=== PATIENT | male | born 1940 | race Caucasian/White ===

== ENCOUNTER 2018-09-09 11:10 | Inpatient (IN) | payer OTHER ==
[2018-09-09 13:52] VITALS: BP 132/72
--- NOTE | 2018-09-09 14:19 | NUR ---
1215: Admitted to room 519-B via gerney from [facility] via EMS transport. Pt quiet, non-Romansh speaking, appears to understand subtle gestures. Head-to-toe assessment completed, no skin issues noted, skin w/d, hygiene poor. VS taken, 132/72 HR 69, RR 16, 97.2, O@SAT 98%. Lung fileds CTA bilat. Admission assessment completed. Dr. Weir here, med orders reviewed, new orders wrote.
--- NOTE | 2018-09-09 17:01 | NUR ---
NEW ORDER PER DR. ALVES, 1:1 SITTER WHILE AWAKE. NOTE: PATIENT IS AWAKE THROUGHOUT THE NIGHT.
[2018-09-09 20:21] VITALS: BP 132/77
--- NOTE | 2018-09-09 20:28 | NUR ---
ASSUMED CARE @ 19:15. 1:1 SITTER. PT ASLEEP IN A CHAIR IN HIS ROOM. TOOK HIMSELF TO BED @ 20:30.
--- NOTE | 2018-09-10 00:02 | NUR ---
AT 22:50 PT AWAKENED. KEPT TRYING TO URINATE ON THE JOSEPH, BEGAN HITTING WHEN STAFF TRIED TO WALK HIM TO THE TOILET. ACCEPTED ZYPREXA AND WATER, THEN SPIT IT ON THE FLOOR. FINALLY ALLOWED SELF TO BE AMBULATED TO THE TOILET, URINATED IN TOILET. HITTING STAFF WHO WERE TRYING TO HELP HIM WALK DUE TO UNSTEADINESS. ORDER FOR THORAZINE IM AND COGENTIN IM OBTAINED. SECURITY CALLED. IM MEDS GIVEN @ 23:55. ALLOWED HIMSELF TO LAY DOWN IN BED @ 00:05. SECURITY LEFT AT THAT TIME. CONTINUE TO PROVIDE 1:1 OBSERVATION.
[2018-09-10 00:11] VITALS: BP 132/77
--- NOTE | 2018-09-10 06:27 | NUR ---
04:25 AWAKE AND OUT OF BED. HITTING STAFF. WANTED TO AMBULATE BUT TRIED TO GO INTO OTHER PATIENTS ROOMS HIT STAFF WHEN THEY TRIED TO GUIDE HIM OUT OF ROOMS, HIT STAFF WHEN THEY PUT GAIT BELT ON PATIENT. NEW ORDER FOR zYPREXA 5MG MELING S.L. PT TOOK PILL AND DID OT SPIT IT OUT. REMAINED AWAKE SITTING UP IN A CHAIR IN HIS ROOM FROM THAT TIME ON. 07:00 MEDS GIVEN @ 06:40 IN ICE CREAM. CONTINUES WITH 1:1 CARE.
[2018-09-10 08:15] VITALS: BP 128/70
--- NOTE | 2018-09-10 12:17 | NUR ---
MATTY spoke wiht ashley Mathew with Dr to. Pt's dght reported that she will be looking for a secure unit closer to her place, as she belives [facility] will provide her with a 30 day notice. Pt will be seeing an oupt urologist, Matty will provide dght with numbers to call and make an appt.
--- NOTE | 2018-09-10 12:40 | NUR ---
PATIENT REMAIN ON 1:1 FOR INAPPROPRIATE BEHAVIOR, PATIENT IS VERY CONFUSED, VOIDS ON THE CORNER OF THE JOSEPH, TAKES CLOTHENS OFF IN ROSS WAY. PATIENT WARDERS INTO PEERS ROOM, HE GETS IRRITABLE WITH REDIRECTION. MEDICATION GIVEN WHOLE THIS MORNING, BUT PATIENT SPIT THEM OUT. THEN HE TOOK MEDS CRUSHED IN PUDDING. DAUGHTER (KENYA) DPOA IN THE HOSPITAL VISITING AT THIS TIME, KENYA SIGNED ALL ADMISSION PAPERWORK, INCLUDING RELEASE OF INFORMATION PAPER. PATIENT IS EATING MEALS, AND DRINKING FLUID WELL. PATIENT IS NOT ABLE TO RESPOND APPROPRIATELY TO ASSESSMENT QUESTION DUE TO COGNITIVE IMPAIRMENT. PATIENT'S DAUGHTER HERE TO INTERPRETE, BUT PATIENT LACK UNDERSTANDING TO THE QUESTIONS. NO AGITATION NOTED AT THIS TIME. INFORMATION ON THORAZINE GIVEN TO KENYA PER HER REQUEST. WILL MONITOR FOR SAFETY.
[2018-09-10] MEDS ORDERED: MIRALAX17 GM PO ×2 (15:55→15:57)
[2018-09-10] MEDS ORDERED: LIDOCAINE PAIN1 EACH TRANSDERM (16:00)
--- NOTE | 2018-09-10 21:34 | H ---
[facility] [place] [address] HISTORY AND PHYSICAL Name: SCOT FLOREZ Room #: 519B-B ADM IN M.R.#: [id number] Admission: 09/09/18 ������������������ Attend Phys: Bashir Weir DO Discharge: ������������������ Date of : 36 Report #: [id number] THIS REPORT FOR: //name// CC: Bashir Weir [facility] unknown DATE OF SERVICE: 09/09/2018 ATTENDING PHYSICIAN: Bashir Weir DO ATTENDING HOSPITALIST: Neil Martinez MD REASON FOR ADMISSION: To ED x 3 times in the last week, has been on 1:1 since last Friday. Does not speak Welsh. Spits, head butts, scratches, hits, inappropriate elimination. HISTORY OF PRESENT ILLNESS: This is a 77-year-old male. The patient is known to me from prior admissions at [facility]. The patient has a number of problems related to major neurocognitive disorder. He has had several admissions at [facility], I believe one at [facility] as well. Unfortunately, records are not available from [facility] or other sources, so I did the best I can. The patient has the above stated history over the last week. A report from the [facility] is his urine was grossly negative except for trace mucus. Drug screen was negative. CBC: H and H 10.8 and 33.7, white count 6.42, platelet count 331. Magnesium level was 2.3. Troponin less than 0.02. Electrolytes: Glucose 134, BUN 21, creatinine 1.02, sodium 143, potassium 4.1, chloride 107, bicarbonate 26.2, anion gap 13.90, calcium 8.7, AST 15, ALT 16, alkaline phosphatase 108, total protein 8.2, albumin 2.9, total bilirubin 0.4, GFR 70.28. CK 72. Portable chest x-ray showed no acute abnormality. Additional information from the Emergency Room. PAST MEDICAL HISTORY: Dementia with behavioral disturbance, essential hypertension, chronic obstructive lung disease, gastroesophageal reflux disease, osteoarthritis. No urinary tract symptoms. PAST SURGICAL HISTORY: None recorded. MEDICATIONS: At nursing facility, ergocalciferol 50,000 International Units oral every week, Flomax 0.4 mg p.o. daily, lidocaine patch, Maalox 30 mL p.o. q.4 hours p.r.n., memantine 21 mg extended release sprinkles, milk of magnesia 30 mL p.o. daily as needed, MiraLax 17 gram oral powder packet, Remeron 15 mg at bedtime, senna daily, Zyprexa 2.5 mg twice a day and 5 mg p.r.n. ALLERGIES: QUETIAPINE, RISPERIDONE, TRAZODONE. REVIEW OF SYSTEMS: No vaccine history from the ER. He is listed as a full [facility] [address] [place] [address] HISTORY AND PHYSICAL Name: SCOT FLOREZ Room #: 519B-B ADM IN M.R.#: [id number] Admission: 09/09/18 ������������������ Attend Phys: Bashir Weir DO Discharge: ������������������ Date of : 38 Report #: [id number] code. There was no way I could obtain a review of systems tonight with the patient. PHYSICAL EXAMINATION: His exam was grossly negative. The patient has normal gait. Difficulty keeping him robed, tends to disrobe. MENTAL STATUS EXAMINATION: This is a well-developed, well-nourished male, appearing stated age. Attention, concentration impaired. Speech in Mauritian and often unintelligible. Psychomotor agitation, no psychomotor retardation. Denied auditory or visual hallucinations. Really not able to assess for suicidality, homicidality. Also, foreign language interpreter was not available. Memory not formally tested, known to be impaired. Insight limited. Judgment limited. Fund of knowledge were below average. VITAL SIGNS: Today, temperature 36.5, pulse 93, respirations 18, BP 132/77, O2 sat 100%. LABORATORY DATA: No laboratories in this hospital. ASSESSMENT: A 77-year-old male with dementia with behavioral disturbance. 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 PLAN: Evaluate, stabilize. Obtain collateral. We will continue with tamsulosin for BPH. He already got a 2 mg injection of Geodon, 25 mg of chlorpromazine. I am inclined at this point to continue with scheduled olanzapine 5 mg t.i.d. I need to talk with his DPOA about using a chlorpromazine regime. Unfortunately, the patient's prognosis is quite guarded. STRENGTHS: He is insured. WEAKNESSES: Advancing age. COMORBIDITIES: Significant refractoriness to treatment of his behaviors. Time spent on interview, review of records, coordination of care for this patient is approximately 45 minutes. ��������������������������������������������� <ELECTRONICALLY SIGNED> ���������������������������������������� By: Bashir Weir DO ��������������������������������������������� 09/10/[id number] 37 [id number] Bashir Weir, /nt
--- NOTE | 2018-09-10 23:25 | NUR ---
PT WANDERING THE HALLS WITH STAFF ESCORT 1:1. UNABLE TO COMMUNICATE DUE TO LANGUAGE PROBLEM. REDIRECTABLE FROM ENTERING OTHER PTS ROOMS. REFUSING TO ALLOW ASSESSMENT OF VITALS. REFUSED TO TAKE PO MEDS. IM THORAZINE 23MG GIVEN AT 2014. PT CONTINUED TO WANDER ALONG JOSEPH. OCCASIONALLY SWINGING AND HITTING AT STAFF WHEN ATTEMPTING TO ESCORT TO ROOM. FINALLY SETTLED AND TUCKED INTO BED AT 2110. CURRENTLY SLEEPING.
[2018-09-11 01:10] VITALS: BP 128/70
--- NOTE | 2018-09-11 02:57 | NUR ---
Patient woke up approximately 0230. Patient trying to get out of bed. 1:1 sitter present at bedside. Patient offered toileting, food/drink, repositioning, reassuring touch. None of which were effective. Patient started to talk and yell louder in Danish. Kicking his legs, hitting toward staff. Ordered medication reviewed. IM Thorazine 25mg administered to left buttock due to agitation, restlessness and anxiety.
--- NOTE | 2018-09-11 04:45 | NUR ---
PT GRADUALLY SETTLED FOLLOWING PRN. CONTINUES TO SLEEP AT THIS TIME.
[2018-09-11 07:00] VITALS: BP 157/69
--- NOTE | 2018-09-11 12:09 | NUR ---
PSYCHOSOCIAL ASSESSMENT Diagnosis: MAJOR NEUROCOGNITIVE D/O Admit Date: 09/09/18 Psychiatrist: LONG Symptoms associated with current admission: Poor impulse control Violence/aggression Others Presenting problems: Pt has been an elopement risk, rejecting assistance with ADL's , physical aggression and frequent public urination. Precipitating Factors: No clear precipitant Comments: History of High Risk Behavors: Hx violence/aggression Other Suicide Risk Factors: A-Signs of alcohol/substance abuse w/ suicide ideation B-Recent suicidal thoughts or attempts C-Recent thoughts or attempts of harming someone else D-Altered mental status due to psychiatric/chem dep etiology E-The behavior exists - add comment PSYCHIATRIC HISTORY Age of onset: Prior hospitalizations: 1-2 times hospitalized Hospital names and dates, if available: [facility] Most Recent Outpatient HX: Additional information: Legal Status: Voluntary Guardian/Conservatorship type: daughter Contact name: fozia Contact phone: [phone] Other: Name: Phone: Other legal issues: (Arrests/convictions Current Status) none known P.O. Name and Phone #: FAMILY HISTORY Place of : Raised in: # Siblings & order: 10 siblings Describe relationships within family of origin: Any psychiatric or substance abuse problems within family of origin: N Has patient been sexually or physically abused, neglected or been taken advantage of financially? N Has the abuse been reported? Other pertinent family information: Marital history/significant relationships: Domestic violence: Children ages & who is caring for them: Is child welfare involved? Drug history: unknown Alcohol Use: Frequency: Quantity: Have you ever felt you ought to Cut down on drinking? Have people Annoyed you by criticizing your drinking? Have you ever felt bad or Guilty about your drinking? Have you ever had a drink first thing in the morning to steady your nerves/get rid of a hangover(Eye ldr rn) CAGE TOTAL If CAGE score is 3 or more, notify provider for withdrawal orders! AXIS SCREENING TOOL Greeley I Mood Disorders: Greeley II Personality/Mental Retardation: Greeley III Medical Impairment: Greeley IV Problem(s) with: Greeley V: Additional Greeley comments: PERSONAL BACKGROUND Relevant cultural issues (ethnicity, values, beliefs, spiritual): armenian speaking Rastafari: unknown Importance of jewish to patient: What hobbies/interests does the patient have? enjoys yard work Sexual orientation (relevant impact to current treatment): : Where did you serve: Branch of service: Rank: Discharge status: Are you a combat ? Occupational/Work: Do you work? N Do you want to work? How many hours do you work/week? How many jobs have you had in the past 5 years? 0 Do you need assistance finding a job? Does the patient need assistance in job training? Source of income: Does patient have a Payee? N Payee name: Approximate monthly income: Does patient have adequate funds for next 30 days? Y Education background: Highest grade completed: HS Other Educational/training programs: Functional deficits: Yes, see explain Explain functional deficits: ESL Current living situation: Facility (B&C, SNF,ILF) Address/phone where pt. is livin [facility] Does the patient plan to continue there after DC? No Patient lives with: Will family/significant other be involved in treatment? Other community support services utilized: Support System Available (family/friend) Name: Fozia Snow Phone: Relationship: daughter Name: Phone: Relationship: Name: Phone: Relationship: Patient strengths: Family support Community support Patient's assets: Verbal Positive support system Patient's weaknesses: Financial support Financial support Health problems Impulsive Lack of housing Additional weaknesses: Patient's perception of current adoption social worker/case management needs: Pt 's dght reported that his current usp will not accept him back. Pt requires a secure unit as he has become an elopement risk. Dght will need a list of communities to chose from for d/c. She would like them near her home in [facility] PRELIMINARY DISCHARGE PLAN Discharge plan/Community resource contacts: Pt will need a Medicaid secure unit in a usp to meet his needs Discharge needs: Transportation Problems anticipated on discharge: Living arrangements Comments: (factors affecting DC plan/pt. response/interventions)
--- NOTE | 2018-09-11 14:59 | NUR ---
UP TO DINNING ROOM FOR MEALS. AMBULATES WITH SLOW STEADY GAIT. GOOD APPETITE. SPEAKS [place]IZ[place] DIFFICULT TO UNDERSTAND TO THOSE WHO SPEAK [place]. SPEECH MUMBLY AND CONFUSED. OCCASIONALLY SPITS ON FLOOR. DROWSY AND CALM FOR MOST OF SHIFT.
--- NOTE | 2018-09-11 23:01 | NUR ---
ASSUMED CARE @ 19:15, PT SITTING IN CHAIR IN THE DAY ROOM, EYES CLOSED. 1:1 CARE CONTINUES WHILE HE IS AWAKE. TOOK 2100 MEDS CRUSHED IN PUDDING. URINATED ON THE FLOOR X1, CONTINUES TO HIT AND BE AGRESSIVE WHEN STAFF ATTEMPTS TO DIRECT HIM TO THE TOILET. ONCE IN THE BATHROOM, HE USUALLY URINATES IN THE TOILET, BUT HAS NOT HAD A BM TODAY. ASLEEP BY 22:30, WILL CONTINUE TO MONITOR.
[2018-09-11 23:46] VITALS: BP 157/69
--- NOTE | 2018-09-12 03:13 | NUR ---
CONTINUES TO SLEEP IN THE NOC. RESPIRATIONS EVEN AND UNLABORED, EYES CLOSED. 1:1 CONTINUES.
--- NOTE | 2018-09-12 07:30 | NUR ---
PT AWAKE IN ROOM AND NURSE INTERN HELPING PT GETTING UP. PT URINATED ON BED. NURSE INTERN GETTING PANTS PULLED UP AND PATIENT TRYING TO PULL DOWN AGAIN. PT HAS 1:1 FOR SAFETY AND BEHAVIOR. PT TAKEN OUT TO DINNING ROOM VIA W/C. PT ABLE TO WALK, JUST NEEDS SUPERVISION.
--- NOTE | 2018-09-12 09:11 | NUR ---
PT TOOK MEDS WITH PEANUT BUTTER WITHOUT DIFFICULTY.
[2018-09-12 10:30] VITALS: BP 95/57
[2018-09-12 11:00] VITALS: BP 95/57
--- NOTE | 2018-09-12 12:19 | NUR ---
PT DIDN'T WANT TO EAT LUNCH AT THIS TIME.
--- NOTE | 2018-09-12 14:15 | NUR ---
PT PULLING PANTS DOWN IN DINNING ROOM AND TRYING TO SIT IN CHAIR, PT ALSO SPITTING ON FLOOR. WALKED PT TO ROOM AND ENCOURAGED PT TO SIT DOWN. PT WAS TRYING TO HIT LOADER UNLOADER IN DINNING ROOM WHEN SHE WAS TRYING TO GET HIM TO GO TO HIS ROOM.
--- NOTE | 2018-09-12 14:39 | NUR ---
PT SITTING ON TOILET IN ROOM, NURSE OUTSIDE ROOM. PUT HIS HAND IN WATER OF TOILET LIKE HE HAD VOIDED.
--- NOTE | 2018-09-12 17:34 | NUR ---
PT HAS BEEN WALKING AROUND THE UNIT. SPITTING IN CERTAIN AREAS ON FLOOR. DID SIT TO EAT SOME DINNER. STILL HAS 1:1.
[2018-09-12 19:34] VITALS: BP 80/43
[2018-09-12 20:05] VITALS: BP 99/57
--- NOTE | 2018-09-12 22:05 | NUR ---
REMAINS 1:1 CARE. SPITTING ON DOORS, URINATING ON THE FLOOR, GOING INTO OTHER RESIDENTS ROOMS. PRN IM MEDS GIVEN FOR AGITATION.
--- NOTE | 2018-09-13 04:26 | NUR ---
IN BED, EYES CLOSED, RESPIRATIONS EVEN AND UNLABORED. 1:1 TAKEN AWAY NOW THAT PT IS ASLEEP. WILL CONTINUE TO MONITOR.
[2018-09-13 04:28] VITALS: BP 80/43
--- NOTE | 2018-09-13 06:18 | NUR ---
slept 6.8 hours
--- NOTE | 2018-09-13 08:58 | NUR ---
0720: Report from [facility] shift, care assumed. 1:1 supervision cont., ambulates with staff in halls, to DR for a.m. meal. Appetite good, feeds self with set up assist and close supervision. Cooperative with staff, takes meds crushed in yogurt. Oriented to name only, forgetful, occasional impulsive movement noted.
[2018-09-13 19:25] VITALS: BP 122/63
--- NOTE | 2018-09-13 21:35 | NUR ---
PT PACING ROSS WITH STAFF. SPEAKING SOME KYRGYZ AT THIS TIME. TOOK HS MEDS PO PRESCRIBED. COOPERATIVE WITH NO COMBATIVE BEHAVIOR NOTED AT THIS TIME.
[2018-09-13 23:47] VITALS: BP 122/63
--- NOTE | 2018-09-14 03:38 | NUR ---
PT UP AFTER BEING INCONTINENT OF URINE. LINEN CHANGED. BED CLOTHING CHANGED. ASSISTED BACK TO BED. GENERALLY COOPERATIVE TONIGHT. NO EPISODES OF COMBATIVENESS. SLEPT WELL THROUGH THE NIGHT TO THIS POINT.
--- NOTE | 2018-09-14 09:06 | NUR ---
0720: Report from noc shift, care assumed. Resting in bed, laying on Rt side, bedrails up x2, 1:1 sitter between pts bed and door.Slowly awakens to verbal and tactile stimuli. 0900: Accomp. by 1:1 sitter to , feeds self with set-up assist. Appetite good, consumed 100%. Takes meds crushed in yogurt, cooperative with staff.
[2018-09-14 09:32] VITALS: BP 97/58
--- NOTE | 2018-09-14 14:04 | EKG ---
[address] [address] ELECTROCARDIOGRAM REPORT Name: SCOT FLOREZ Room #: 519[facility] ADM IN M.R.#: [id number] ������������������ Admission: 09/09/18 ������������������ Attend Phys: Bashir Weir DO Discharge: ������������������ Date of : 38 Report #: [id number] ����������������������������������������������������������������� [id number] THIS REPORT FOR: //name// [facility] Test Date: 2018-09-14 Test Time: 11:16:06 Pat Name: SCOT FLOREZ Department: Room: [facility] Gender: M Charter Representative: Adama DOMINGUEZ : 1940 Requested By: Bashir Weir Order Number: [id number] MD: Abdelrahman Griffith Measurements Intervals [place] Rate: 89 P: 39 ME: 138 QRS: -26 QRSD: 90 T: 55 QT: 347 QTc: 423 Interpretive Statements Sinus rhythm Borderline left axis deviation Low voltage, extremity leads Baseline wander in lead(s) I,II,aVR,V6 No previous ECG available for comparison Electronically Signed On 09-14-2018 14:04:20 CDT by Abdelrahman Griffith [email or web address] ��������������������������������������������� <ELECTRONICALLY SIGNED> ���������������������������������������� By: Abdelrahman Griffith MD ��������������������������������������������� 09/14/18 1404 1116 1116 Abdelrahman Griffith MD /EPI
[2018-09-14 19:48] VITALS: BP 128/78
--- NOTE | 2018-09-14 21:35 | NUR ---
ASSUMED CARE OF THE PT AT 1914 PM. ALERT ET ORIENTED. DOES NOT SPEAK LATVIAN, TOOK HIS MEDICATION WITHOUT ANY DIFFICULTY. HAD A SNACK OF ICE CREAM. WAS SLEEPING IN THE CHAIR IN THE DAYROOM WHEN THIS ELECTRIC WIRER FIRST CAME ON DUTY. REMAINS ON 1:1 AT THIS TIME. THE PT WAS ASSISTED TO BE WITH THE ASSISTANCE OF TWO.
--- NOTE | 2018-09-15 06:25 | NUR ---
THE PT SLEPT 9.2 HOURS LAST NIGHT.
[2018-09-15 07:15] VITALS: BP 124/64
--- NOTE | 2018-09-15 12:42 | NUR ---
PATIENT WAS AWAKE, UP AND OUT IN THE DAYROOM THIS MORNING, TOOK ALL MORNING MEDICATION CRUSHED IN APPLE SOURCE. SPEAKING WITH PHONE ELECTRIC LOCOMOTIVE CRANE OPERATOR, PATIENT IS NOT ABLE TO APPROPRIATELY COMPREHEND AND RESPOND TO ASSESSMENT QUESTIONS. PATIENT'S APPETITE IS GOOD, HE CONSUMED ABOUT 75% BREAKFAST, WENT BACK TO BED AFTER MORNING GROUP. NO AGGRESSIONN OR AGITATION NOTED AT THIS TIME. PATIENT IS CURRENTLY IN BED SLEEPING. REMAIN ON 1:1 LEVEL OF OBSERVATION WHILE AWAKE, WILL MONITOR FOR SAFETY.
[2018-09-15 20:45] VITALS: BP 105/71
--- NOTE | 2018-09-15 21:38 | NUR ---
ASSUMED CARE OF THE PT AT 1915PM. SPEAKS MOSOT[place], DOES NOT UNDERSTAND DOMINICAN. INCONT OF URINE AT TIMES. DENIES PAIN AT THIS TIME.
--- NOTE | 2018-09-16 02:24 | NUR ---
THE PT WAS INCONTINENT X 2 THIS SHIFT, SO FAR. HE TOOK HIS MEDICATIONS WITHOUT ANY DIFFICULTY, TOOK MOST OF HIS MEDICATIONS CRUSHED, EXCEPT HE TAKES HIS PROTONIX WHOLE IN THE AM. REMAINS ON 12 MINUTE CHECKS FOR HIS SAFETY.
--- NOTE | 2018-09-16 06:40 | NUR ---
THE PT SLEPT 7 HOURS LAST NIGHT.
[2018-09-16 07:30] VITALS: BP 99/67
[2018-09-16 07:51] VITALS: BP 99/67
--- NOTE | 2018-09-16 08:00 | NUR ---
PT ORTHOSTATIC VS TAKEN LYING, SIT, AND STANDING. LYING 99/67, 79 PULSE. SITTING 98/63, AND STANDING 110/64.
--- NOTE | 2018-09-16 08:30 | NUR ---
PT ATE BREAKFAST. PT HAS BEEN UP WALKING WITH STEADY GAIT AROUND DINNING ROOM AND HALLWAY. DENIES ANY PAIN. PT DOESN'T SIT STILL VERY LONG.
--- NOTE | 2018-09-16 09:00 | NUR ---
PT TOOK FLOMAX IN PEANUT BUTTER WITHOUT ANY ISSUES.
--- NOTE | 2018-09-16 15:00 | NUR ---
CHANGED PATIENTS PANTS, HAD SMEAR OF STOOL. PT DIDN'T WANT CLOTHES TAKEN OFF.
--- NOTE | 2018-09-16 15:01 | NUR ---
OLIVIA met with Bakari from [facility] concering pt being accepted to [facility]. Bakari stated at this time she does not have an opening within the [facility] location. Bakari requested noted to be sent to the [facility]. OLIVIA faxed the notes, and HMP to [phone]. OLIVIA will follow-up with the [facility] upon discharge.
--- NOTE | 2018-09-16 17:40 | NUR ---
PT IN ANOTHER ROOM. ESCORTED PT BACK TO HIS ROOM. PT INCON. OF BOWEL AND URINE. PT COOROPERATED WITH STAFF IN CHANGING PANTS.
--- NOTE | 2018-09-16 19:39 | NUR ---
ASSUMED CARE OF THE PT AT 191 PM, ALERT ET ORIENTED. MAKES NEEDS KNOWN. WALKS WITH A STEADY GAIT. HEART RATE REGULAR, LUNGS CLEAR BILATERALLY, RESP., EVEN, AND UNLABORED. REMAINS ON 12 MINUTE CHECKS FOR HIS SAFETY.
[2018-09-16 19:45] VITALS: BP 144/91
[2018-09-17 07:36] VITALS: BP 110/70
--- NOTE | 2018-09-17 15:50 | NUR ---
OLIVIA faxed the D/C documentation to the [facility]. OLIVIA faxed to [phone]
[2018-09-17 16:30] VITALS: BP 128/65
--- NOTE | 2018-09-17 16:52 | NUR ---
PATIENT HAS BEEN VERY LETHARGIC EARLY THIS MORNING, MEDICATIONS TAKEN ORDERED - ADVISED BY DAUGHTER SEVERE CHEST PAINS AND FAMILY WORRIED. STAT CHEST X-RAY ORDERED. STATED VIA TRANSLATION THAT PAIN WAS LESS THIS MORNING BUT INCREASINGLY WORSE DAY PROGRESSED. NOTED PATIENT COLD - LITTLE BLOOD RETURN ON NAIL BASE AND LIPS BLUE - ADVISED FAMILY WOULD LET KNOWN OF CONCERNS.
--- NOTE | 2018-09-18 03:45 | NUR ---
Patient alert and oriented to person. Patient awake and ambulating about unit earlier this evening. No s/s of delusions or hallucinations observed. Communicated with resident via daughter over phone and little Uzbek known by nurse. Patient took medications crushed with no difficulty. Patient reported pain to chest. Patient reports pain worsened when he layed down in bed. Patient provided PRN Tylenol. Reports effective after 1 hour and was able to lay in bed and sleep. Incontinent of bowel and bladder. Incontinent and connie care provided x3 this shift. Patient did spit on the floor in the hallway after reporting he was in pain and was agitated. Redness and warmth observed to his upper right arm between shoulder and elbow. Skin intact. Denies pain or discomfort upon palpation. Full ROM observed. Full skin assessment completed and no other skin alterations, rash or redness observed on any other areas of the body. Patient has been sleeping well this shift.
--- NOTE | 2018-09-18 07:08 | EKG ---
[address] [address] ELECTROCARDIOGRAM REPORT Name: SCOT FLOREZ Room #: 519[facility] ADM IN M.R.#: [id number] ������������������ Admission: 09/09/18 ������������������ Attend Phys: Bashir Weir DO Discharge: ������������������ Date of : 36 Report #: [id number] ����������������������������������������������������������������� [id number] THIS REPORT FOR: //name// [facility] Test Date: 2018-09-17 Test Time: 17:04:45 Pat Name: SCOT FLOREZ Department: Room: [facility] Gender: M Tourist Guide: Dimple LEON : 1940 Requested By: Bashir Weir Order Number: [id number] MD: Abdelrahman Griffith Measurements Intervals [place] Rate: 78 P: 45 ND: 142 QRS: -7 QRSD: 95 T: 67 QT: 385 QTc: 439 Interpretive Statements Sinus rhythm Low voltage, extremity leads Compared to ECG 09/14/2018 11:16:06 No significant changes Electronically Signed On 09-18-2018 7:07:59 CDT by Abdelrahman Griffith [email or web address] ��������������������������������������������� <ELECTRONICALLY SIGNED> ���������������������������������������� By: Abdelrahman Griffith MD ��������������������������������������������� [id number] Abdelrahman Griffith MD /HAYDEN
[2018-09-18 07:25] VITALS: BP 102/55
--- NOTE | 2018-09-18 08:00 | NUR ---
PT SITTING IN DINNING ROOM RESTING HIS EYES. PT SPEEKS PORTUGUESE AND A SMALL AMOUNT OF SAMMARINESE SUCH HELLO. PT SMILES WHEN SPOKEN TOO. PT WILL TAKE MEDICATION IN PEANUT BUTTER OR PUDDING. PT LUNGS CLEAR. PT UP WALKING AROUND AFTER MEALS, WALKS FREQUENTLY AROUND THE UNIT.
--- NOTE | 2018-09-18 10:18 | NUR ---
Nutrition: pt admitted with major neurocognitive disorder, seen due to LOS on [facility] unit. Pt is welsh speaking. Nsg reports pt eating 100% of meals on regular diet with finger foods requested. No ht/wt recorded, requested from nsg. Observed pt with small frame but appears well-nourished. Low risk.
[2018-09-18] MEDS ORDERED: FLOMAX0.4 MG PO (12:01)
[2018-09-18] MEDS ORDERED: CHLORPROMAZINE25 M1 PO (12:02)
[2018-09-18] MEDS ORDERED: CHLORPROMAZINE25 M3 PO (12:03)
[2018-09-18] MEDS ORDERED: SENNA-TIME S T1 EACH PO (12:04)
[2018-09-18] MEDS ORDERED: PROTONIX40 M1 PO (12:07)
--- NOTE | 2018-09-18 13:23 | NUR ---
1320: Rec call from HELENA Atwood @ [facility] who reports that a fax came through from this location...verified pt., Rai assured this curriculum writer that information would beplaced in shredder at his facility. Reported to [facility] Director.
--- NOTE | 2018-09-18 15:02 | NUR ---
Spoke with logistics administrator at [place]. He apologized and stated both sides want what was best for pateint. Told him we will be keeping pateint over the weekend as we thought that it would be best for patient - will start Friday morning planning D/C to facility 09/21/18
--- NOTE | 2018-09-18 15:22 | NUR ---
PT RESTING IN CHAIR IN ROOM. PT PLACED INTO BED X2 STAFF. PT RESTING WITH EYES CLOSED. PT DIAPHORETIC AND ROOM IS WARM, ADJUSTED ROOM TEMP.
--- NOTE | 2018-09-18 16:03 | NUR ---
Olivia spoke with Renetta and Randee from the [facility] rehab. OLIVIA mention that there was notes sent on September 15, 2018, and September 16, 2018. SW mention that the pt has not been on 1:1 since September 15, 2018, and he has being compliant with his medication and staff. The DON Randee mention that the pt will not be accepted into [facility] facility due to him not being on medication Thorezin as a form of restraint. OLIVIA explained if the medication is a schedule presciption then he is allowed to be accepted in the [facility]. Randee stated that they are unable to meet the needs of the pt, and they will not allow him to come to there facility. Dr. Weir interjected in mention that there will be an hotline called on the NF, and that he is not going remove the pt off the medication due to him adherent to state policies. The NF hung up the phone on Dr. Weir in stated in the process that they will not accept the pt into the facility. OLIVIA will follow-up with Dr. Weir, and Trudy the Director.
--- NOTE | 2018-09-18 16:11 | NUR ---
MATTY spoke with Pat from [facility], and faxed over an copy of the notes from and 18 of September. Pat stated that she has recieved them and will follow-up with the adminstrator to see when they can accept the pt to the facility. Matty recieved a message from Trudy that the pt will discharge to the facility on September 21, 2018.
[2018-09-18 19:52] VITALS: BP 128/83
--- NOTE | 2018-09-18 21:22 | NUR ---
Chart reviewed. EKG obtained 09/18/18 showed changes comparing to 09/17/18. 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 LUZ Negro notified via phone. Order obtained to draw Troponin level STAT. Order placed and lab notified.
--- NOTE | 2018-09-18 22:47 | NUR ---
Results obtained from STAT Troponin level, WNL. LUZ Negro notified via phone. Order obtained to monitor patient and repeat EKG 09/19/18. Order noted.
[2018-09-19 00:51] VITALS: BP 128/83
[2018-09-19 00:54] VITALS: BP 128/83
--- NOTE | 2018-09-19 02:32 | NUR ---
PT CONTINUES TO BE PERIODICALLY RESTLESS. ATTEMPTING TO CLIMB OUT OF BED. INCONTINENT OF URINE X1 TO THIS POINT. PROVIDED WITH SNACK TO ASSIST HIM IN SETTLING.
[2018-09-19 07:35] VITALS: BP 99/54
--- NOTE | 2018-09-19 08:45 | EKG ---
[address] [address] ELECTROCARDIOGRAM REPORT Name: SCOT FLOREZ Room #: [facility] ADM IN M.R.#: [id number] ������������������ Admission: 09/09/18 ������������������ Attend Phys: Bashir Weir DO Discharge: ������������������ Date of : 38 Report #: [id number] ����������������������������������������������������������������� [id number] THIS REPORT FOR: //name// [facility] Test Date: 2018-09-18 Test Time: 17:47:55 Pat Name: SCOT FLOREZ Department: Room: [facility] Gender: M Hospice Volunteer Coordinator: SAMANTHA : 1940 Requested By: Bashir Weir Order Number: [id number] MD: Abdelrahman Griffith Measurements Intervals [place] Rate: 101 P: 34 MA: 127 QRS: -32 QRSD: 91 T: 61 QT: 340 QTc: 441 Interpretive Statements Sinus tachycardia Baseline wander in lead(s) II,III,aVF Compared to ECG 09/17/2018 17:04:45 Sinus rhythm no longer present Electronically Signed On 09-19-2018 8:44:52 CDT by Abdelrahman Griffith [email or web address] ��������������������������������������������� <ELECTRONICALLY SIGNED> ���������������������������������������� By: Abdelrahman Griffith MD ��������������������������������������������� 09/19/18 0844 1747 1747 Abdelrahman Griffith MD /[facility]
--- NOTE | 2018-09-19 09:39 | NUR ---
ASSUMED PATIENT CARE AT 0700. PATIENT LYING IN BED, SLEEPING AT THAT TIME. HAS REMAINED IN BED, IS CURRENTLY GETTING UP WITH ASSISTANCE. BREAKFAST WILL BE RE-HEATED FOR PATIENT AFTER HE IS SEATED IN THE D.R.
[2018-09-19 19:29] VITALS: BP 122/66
--- NOTE | 2018-09-19 21:57 | NUR ---
Pt pacing in olivier and dining room upon arrival to shift. Pt compliant with meds and ice cream. Pt is resistive to redirection when being guided out of other patient rooms. Pt ambulating steady but slouched back and poor eye contact. Pt was leaning against window with his head and in the olivier on the shultz. Pt guided to bed and complied.
[2018-09-20 07:00] VITALS: BP 104/62
[2018-09-20 11:46] VITALS: BP 104/62
--- NOTE | 2018-09-20 12:18 | NUR ---
ASSUMED CARE AT 0700 THIS MORNING. PT. UP AND PACING IN THE HALLWAY. HE SAT DOWN TO EAT BREAKFAST. HE WAS COMPLIANT WITH HIS MEDS CRUSHED AND PUT IN ICECREAM. HE TOOK HIS MIRALAX IN WATER. HE FELL ASLEEP AFTER BREAKFAST AND SLEPT UNTIL LUNCH. ATE WELL FOR LUNCH. CHANGED TIMES ONE THIS SHIFT FOR INCONTINENCE. CONTINUES TO PACE IN HALLS WHEN AWAKE.
[2018-09-20 19:59] VITALS: BP 118/62
--- NOTE | 2018-09-20 21:04 | NUR ---
ASSUMED CARE @ 19:15. IN BED EYES CLOSED, RESPIRATIONS EVEN AND UNLABORED. VS STABLE. AWAKENED TO ADMINISTER 2100 MEDS IN ICE CREAM. WENT BACK TO SLEEP AFTER TAKING MEDS. WILL CONTINUE TO MONITOR.
[2018-09-20 21:12] VITALS: BP 118/62
--- NOTE | 2018-09-21 02:52 | NUR ---
PT IS IN BED WITH EYES CLOSED, RESPIRATIONS EVEN AND UNLABORED. WILL CONTINUE TO MONITOR.
[2018-09-21 07:25] VITALS: BP 100/72
--- NOTE | 2018-09-21 08:41 | EKG ---
[address] [address] ELECTROCARDIOGRAM REPORT Name: SCOT FLOREZ Room #: [facility] ADM IN M.R.#: [id number] ������������������ Admission: 09/09/18 ������������������ Attend Phys: Bashir Weir DO Discharge: ������������������ Date of : 38 Report #: [id number] ����������������������������������������������������������������� [id number] THIS REPORT FOR: //name// [facility] Test Date: 2018-09-19 Test Time: 17:11:45 Pat Name: SCOT FLOREZ Department: Room: [facility] Gender: M Filler Picker: JOHN : 1940 Requested By: Amandeep Bella Order Number: [id number] MD: Massimo Joy Measurements Intervals [place] Rate: 84 P: 43 ND: 144 QRS: 2 QRSD: 94 T: 68 QT: 356 QTc: 421 Interpretive Statements Sinus rhythm Normal tracing Compared to ECG 09/18/2018 17:47:55 Low QRS voltage now present Sinus tachycardia no longer present Electronically Signed On 09-21-2018 8:41:32 CDT by Massimo Joy [email or web address] ��������������������������������������������� <ELECTRONICALLY SIGNED> ���������������������������������������� By: Massimo Joy MD, [facility] ��������������������������������������������� 09/21/18 0841 10 10 Massimo Joy MD, [facility] /EPI
--- NOTE | 2018-09-21 11:04 | NUR ---
OLIVIA spoke with Carlin the employee relations administrator at [facility]. He mention that the weekend SW did not send the nurse notes. OLIVIA sent the weekend notes, and stated that pt will have to be discharge on today. He stated that he will have the admission setup transportation. OLIVIA will follow-up with Mr. Gillis at noon to finalize disharge arrangements.
[2018-09-21 13:02] VITALS: BP 100/72
--- NOTE | 2018-09-21 13:12 | NUR ---
ASSUMED CARE AT 0700 TODAY. PT. UP AND ON THE UNIT. HE WAS COOPERATIVE WITH EATING MEALS ON THE UNIT AND TAKING MEDICATIONS. MEDS ARE CRUSHED AND PUT IN PUDDING OR ICE CREAM. HE CONTINUES EXHIBIT CONFUSION EVIDENCED BY WANDERING UP AND DOWN THE HALLS, ENTERING OTHER PATIENT ROOMS. HE REMAINED UP MUCH OF THE DAY. HE ALLOWED STAFF TO TAKE CARE OF HIM WITHOUT ANY S/S OF AGRESSION NOTED.
--- NOTE | 2018-09-21 19:26 | NUR ---
ASSUMED CARE OF THE PATIENT AT 1915PM. HE CANNOT SPEAK SLOVENIAN. ALERT ER ORIENTED X 2. IS INCONTINENT AT TIMES, WHERE'S A BRIEF AT TIMES. REMAINS ON 12 MINUTE CHECKS FOR HIS SAFETY.
[2018-09-21 20:02] VITALS: BP 134/70
--- NOTE | 2018-09-22 03:15 | NUR ---
INCONT. X 1 EARLIER IN THE SHIFT, THE PT IS DRY AT THIS TIME. THE PT IS SNORING LOUDLY.
--- NOTE | 2018-09-22 06:11 | NUR ---
THE PT SLEPT 10.4 HOURS LAST NIGHT.
[2018-09-22 07:49] VITALS: BP 90/55
[2018-09-22 08:00] VITALS: BP 90/55
--- NOTE | 2018-09-22 08:20 | NUR ---
PT WAS STILL SLEEPY AND NEEDED ASSITANCE WITH GETTING UP OUT OF BED AND INTO BREAKFAST. PT DIDN'T SEEM VERY HUNGRY, OFFERING FINGER FOODS. PT DENIES ANY PAIN. PT UP AFTER ASSITANCE WITH X2 STAFF TO CHAIR.
--- NOTE | 2018-09-22 08:53 | NUR ---
PT SPIT OUT MEDS THAT WAS PUT IN PUDDING. NEEDS MEDS CRUSHED IN ORDER FOR PROPER ADMINISTRATION.
--- NOTE | 2018-09-22 10:00 | NUR ---
PT TOOK A SHOWER WITH ENCOURAGEMENT OF DR. ALVES. PT DID TAKE A SHOWER.
--- NOTE | 2018-09-22 10:25 | NUR ---
Patient Name: SCOT FLOREZ Admission Date: 09/09/18 DISCHARGE PLAN: Pt will be discharge to [facility] Care Assessment: Pt was assessed by Dr. Weir, and diagnosed with Major Neurocognitve Disorder. Level II Assessment: None Transportation: Pt will be transported by [facility] to the . Special Instructions/Notes: Pt will need a memory care unit. Pt will need to be supervised by nursing due to his cognition. DISCHARGE TO FACILITY: Memory Care unit Facility: [facility] Fax: Address: [address] [place] [phone] Contact Name: Reba (Admission) PCP: JUDY ROBERTS Doctor Psychiatrist: AN ROBERTS Psychiatrist
--- NOTE | 2018-09-22 13:24 | NUR ---
PT UP WALKING IN ROSS TODAY. CONVERSATION WITH NURSE AND PT HAS GOING TO HIS ROOM TO USE BATHROOM.
--- NOTE | 2018-09-22 13:54 | NUR ---
TRANSPORTATION HERE TO [place] MACHINE OPERATOR PT AND HE HAS INCON. OF BM, JOEY HINOJOSA. CHANGED PT X2 PERSON ASSIST. PT ALLOWED STAFF TO CHANGE HIM. PT LEFT VIA W/C VAN. ACCOMPANIED BY STAFF.
--- NOTE | 2018-09-22 14:00 | NUR ---
GAVE REPORT TO SERAFIN AT [facility].
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
== END 2018-09-22 13:54 | DRG 57 ==
LOC: SBH
PROVIDERS: ADMIT Psychiatry & Neurology Psychiatry
DX: G30.9 Alzheimer's disease, unspecified (principal); F02.81 Dementia in other diseases classified elsewhere, unspecified severity, with behavioral disturbance; F01.51 Vascular dementia, unspecified severity, with behavioral disturbance; G93.40 Encephalopathy, unspecified; I10 Essential (primary) hypertension; J44.9 Chronic obstructive pulmonary disease, unspecified; K21.9 Gastro-esophageal reflux disease without esophagitis; M19.90 Unspecified osteoarthritis, unspecified site; N40.0 Benign prostatic hyperplasia without lower urinary tract symptoms; F20.9 Schizophrenia, unspecified; F29 Unspecified psychosis not due to a substance or known physiological condition; Z88.8 Allergy status to other drugs, medicaments and biological substances; Z79.899 Other long term (current) drug therapy
CPT/HCPCS: 10880

== ENCOUNTER 2019-10-21 20:11 | Inpatient (IN) | payer OTHER ==
[~2019-10-21] VITALS: Ht 160 cm; Wt 55.0 kg
[~2019-10-21 20:11] MED LIST: CHLORPROMAZINE25 M1 PO; CHLORPROMAZINE25 M3 PO; FLOMAX0.4 MG PO; LIDOCAINE PAIN1 EACH TRANSDERM; MIRALAX17 GM PO; PROTONIX40 M1 PO; SENNA-TIME S T1 EACH PO
[2019-10-21 20:32] VITALS: BP 110/66
[2019-10-21 20:46] LABS: ABSOLUTE NEUTROPHILS 3.3 thou/uL (1.4-8.2); BASOPHILS 1.4 % (0.0-2.0); HEMATOCRIT 32.3 % (42.0-52.0); HEMOGLOBIN 10.7 gm/dL (14.0-18.0); LYMPHOCYTES 36.9 % (24.0-44.0); MCH 28.4 pg (26.0-34.0); MCHC 33.1 g/dL (28.0-37.0); MCV 85.8 fL (80.0-100.0); MONOCYTES 11.1 % (1.0-8.0); PLATELET COUNT 309 thou/uL (150-400); POLYS 47.6 % (36.0-66.0); RBC 3.77 mil/uL (4.50-6.00); RDW 16.4 % (10.5-14.5); WBC 6.9 thou/uL (4.0-11.0)
[2019-10-21 21:03] LABS: CALCIUM 8.3 mg/dL (8.5-10.1); CREATININE 1.1 mg/dL (0.7-1.3); POTASSIUM 4.1 mmol/L (3.5-5.1)
[2019-10-21 21:09] LABS: ALBUMIN 3.1 g/dL (3.4-5.0); TOTAL BILIRUBIN 0.4 mg/dL (0.2-1.0); TOTAL PROTEIN 8.4 g/dL (6.4-8.2)
[2019-10-21 21:55] LABS: URINE BILIRUBIN NEGATIVE (Negative); URINE BLOOD NEGATIVE (Negative); URINE CLARITY CLEAR; URINE COLOR YELLOW; URINE GLUCOSE-RANDOM* NEGATIVE (Negative); URINE KETONES NEGATIVE (Negative); URINE LEUKOCYTES-REFLEX NEGATIVE (Negative); URINE NITRITE-REFLEX NEGATIVE (Negative); URINE PROTEIN (DIPSTICK) NEGATIVE (Negative); URINE UROBILINOGEN 0.2 E.U./dl (0.2-1.0)
[2019-10-21 22:01] LABS: BE(vivo) -3.8 mmol/L (-2 to +3); HCO3 21.4 mmol/L (22.0-26.0); PCO2 VENOUS 39.3 mmHg (41.0-51.0); PO2 VENOUS 40.3 mmHg (35.0-45.0)
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
[2019-10-21 22:34] VITALS: BP 110/66
[2019-10-21 23:00] VITALS: BP 102/65
[2019-10-21] MEDS ORDERED: CIMETIDINE 400400 MG PO (23:29)
[2019-10-21] MEDS ORDERED: D3-501250 MCG PO (23:29)
[2019-10-21] MEDS ORDERED: EUCERIN CREME57 GM TOP (23:31)
[2019-10-21] MEDS ORDERED: HYDROCORTISONE30 GM TOP (23:32)
[2019-10-21] MEDS ORDERED: MELATONIN3 M1 PO (23:33)
[2019-10-21] MEDS ORDERED: MIRTAZAPINE15 M2 PO (23:34)
[2019-10-21] MEDS ORDERED: NAMENDA XR21 MG PO (23:34)
[2019-10-21] MEDS ORDERED: OLANZAPINE5 M1 PO ×2 (23:35→23:36)
[2019-10-21] MEDS ORDERED: MIRALAX119 GM PO (23:36)
[2019-10-21] MEDS ORDERED: ACETAMINOPHEN650 M5 PO (23:38)
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
[2019-10-22 09:41] LABS: TSH 2.637 uIU/mL (0.358-3.740)
--- NOTE | 2019-10-22 11:35 | NUR ---
0700 ASSUMED CARE OF PATIENT, PATIENT IN BED AT THAT TIME. 0745 PATIENT UP IN ROOM AND URINATED ON FLOOR IN ROOM. TO DAYROOM FOR BREAKFAST, SITS AT TABLE. PATIENT EATS 100% OF MEAL MEDICATION TAKEN WHOLE WITHOUT DFFICULTY. SHIPPING TRACK SUPERVISOR SPEAKS COMORAN AND ABLE TO COMMUNICATE WITH PATIENT WELL. PATIENT CALM AND COOPERATIVE WITH NOTED CONFUSION AND ALERT & ORIENTED X1. PATIENT ORIENTED TO SELF ONLY. TRANSLATED FOR POOL NURSE STELLA THIS AM, PATIENT UNABLE TO FOLLOW DIRECTION. PATIENT SPITTING ON FLOOR IN ROSS AND URINATING AT THE END OF THE ROSS. SHIPPING TRACK SUPERVISOR ATTEMPTED TO EXPLAIN ABOUT GOING TO BATHROOM AND NOT ON FLOOR. PATIENT UNABLE TO COMPREHEND WHATIS BEING ASKED OF HIM AND STARTS TO TALK ABOUT SOMETHING A DIFFRENT SUBJECT. PATIENT NOTED TO WALK THE HALLS BACK AND FORTH WITH A STEADY GAIT. WILL CONTINUE TO OBSERVE.
[2019-10-22 16:00] VITALS: BP 115/69
--- NOTE | 2019-10-22 17:29 | NUR ---
PATIENT CONTINUES TO AMBULATE UP AND DOWN THE ROSS SPITTING AT TIMES. PATIENT ENTERING OTHER PATIENTS ROOMS URINATING ON THE FLOOR. MANUAL TRAINING TEACHER HAS ATTEMPTED TO SPEAK WITH PATIENT AND PATIENT DOES NOT VOICE UNDERSTANDING TO USING HIS BATHROOM. PATIENT STARTS SPEAKING ABOUT SOMETHING ELSE AND DOES NOT FOLLOW DIRECTIONS WELL. PATIENT IS CALM WITH NO AGGRESSION NOTED.
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
[2019-10-23 05:08] LABS: GLYCOHEMOGLOBIN (HGB A1C) 6.1 % (4.8-5.6)
[2019-10-23 07:00] VITALS: BP 129/74
--- NOTE | 2019-10-23 08:57 | NUR ---
0700 ASSUMED CARE OF PATIENT, PATIENT SITTING IN GERICHAIR ASLEEP AT THAT TIME. PATIENT AWAKE FOR BREAKFAST, ATE 100% OF HIS DOUBLE PORTIONS. PATIENT AWAKE & ALERT, ORIENTED TO SELF ONLY. PATIENT SMILES TO MINERAL TECHNOLOGIST AND SAYS GOOD MORNING IN [place]. DENIES PAIN, DENIES NEEDS AT THIS TIME. CONTINUES TO SIT IN CHAIR QUIETLY
--- NOTE | 2019-10-23 14:58 | NUR ---
SW left a voicemail for Pt's daughter, Priyanka [phone], for a phone call back
--- NOTE | 2019-10-24 04:42 | NUR ---
Assumed care of pt @ 1900. Pt calm et cooperative this shift. Took medications whole without difficulty. Ambulates the halls ad jose with steady gait. It was reported that pt urinated in his bedroom on the previous shift but no abnormal urination noted on this shift. Pt rested in dayroom on couch most of shift. VSWNL. health assessment with no abnormalities other than previously noted. Unable to assess SI/HI due to language barrier et pt's refusal to use interpretation line, but pt does not appear to be in any acute emotional distress at present time. Does not socialize with peers due to language barrier. Currently resting on couch in dayroom with eyes closed. Will continue to monitor per protocol.
[2019-10-24 07:30] VITALS: BP 114/65
[2019-10-24 08:00] VITALS: BP 114/65
--- NOTE | 2019-10-24 08:42 | NUR ---
PT SITTING IN DINING ROOM AT THIS TIME. PT NON-URDU SPEAKING, ONLY SPEAKS RUSSIAN. PT ABLE TO EAT BREAKFAST WITHOUT ANY ASSISTANCE. PT TOOK MEDS WHOLE WITH ASSISTANCE. PT LUNGS CLEAR. PT UP WALKING WITH A BOW-LEGGED GAIT. PT DOES HAVE YELLOW SHIRT AND YELLOW SOCKS.
--- NOTE | 2019-10-24 09:35 | NUR ---
WALKED AROUND UNIT WITH PATIENT. PT REFUSED TO USE WALKER. PT LOOKING AT RAILS AND CHECKING FOR STABILITY. PT SPEAKING JORDANIAN. PT REFUSED TO GO TO BATHROOM WHEN DIRECTED TO USE IT. ASKING PATIENT IN JORDANIAN IF HE NEEDED TO USE BATHROOM. PT REFUSED.
--- NOTE | 2019-10-24 12:10 | NUR ---
PT NEEDED DIRECTED TO DINING ROOM TO EAT. PT HAS FINGER FOODS, PT DID EAT SOME FRUIT AND CHICKEN. PT DID GET UP AGAIN AFTER A COUPLE OF BITES.
--- NOTE | 2019-10-24 12:46 | NUR ---
TRIED TO GET PT TO USE BATHROOM. PT REFUSED TO GO AT THIS TIME. PT KEEPS PRAYING TO MOTHER MUNIR.
--- NOTE | 2019-10-24 15:30 | NUR ---
ASSISTED PT TO BATHROOM WITH HELP OF AIDE, PT DIDN'T WANT STAFF TO TAKE DOWN HIS PANTS. PT DID HAS SMEAR OF STOOL IN BRIEF. CHANGED BRIEF, PT SAT ON TOILET DIDN'T VOID AT THIS TIME. PT DOES SPIT OUT IN ROSS OR WHERE EVER HE FEELS.
[2019-10-24 19:37] VITALS: BP 114/62
--- NOTE | 2019-10-24 22:39 | NUR ---
ASSUMED CARE OF PATIENT AT APPROXIMATELY 1915, PATIENT HAS BEEN UP WONDERING THE HALLS THROUGHOUT THE EVENING, OCCASIONALY BECOMING IRRITABLE AND AGGRESSIVE WITH STAFF WHEN ATTEMPTING TO REDIRECT PATIENT. DR. ALVES NOTIFIED OF PATIENTS BX WITH ORDERS FOR BENADRYL 25MG IM X1 NOW FOR AGITATION.WHICH WAS GIVEN WITHOUT RESISTANCE FROM PATIENT. PATIENT IS CURRENTLY IN THE DAY ROOM, REQUIRING FREQUENT REDIRECTION FOR DISRUPTIVE BX TO THE [place]. HE FREQUENTLY GRABS STAFF AND ATTEMPTS TO STRIKE OUT STAFF. SI/HI IS DIFFICULT TO ASSESS R/T PATIENTS LANGUAGE BARRIER. HE HAS BEEN OBSERVED GRABBING AT THINGS IN THE AIR THAT THIS RN CANNOT VISUALIZE. HE DOES NOT APPEAR TO BE IN MEDICAL DISTRESS AT THIS TIME, NURSING WILL MAINTAIN Q12 CHECKS AND REDIRECT BX NEEDED.
--- NOTE | 2019-10-25 04:51 | NUR ---
Patient was able to fall asleep rather late this shift. Patient incontinent of bladder through the night. Required max assist x1 for connie care and linen change due to resistive behaviors. Patient was assisted back to recliner after toileting. Once patient was able to fall asleep, he has been able to rest quietly.
[2019-10-25 07:38] VITALS: BP 128/78
[2019-10-25 08:10] VITALS: BP 128/78
--- NOTE | 2019-10-25 08:57 | NUR ---
PT HAS BEEN PACING THIS AM DOING PHIL DELGADO WITH HANDS. PT NOT EATING BREAKFAST. CRUSHED MED AND PUT IN OATMEAL. PT DID TAKE ONE BITE OF OATMEAL AND DRANK ORANGE JUICE. PT NEEDED ASSISTANCE WITH A CHANGE FROM BEING INCON. IN DHARA CHAIR. PT WALKED TO ROOM AND CLOTHES CHANGED. NO BEHAVIOR FROM CHANGE OF CLOTHES. PT DOES NOT LIKE TO HAVE PANTS TAKEN DOWN, PT KEEPS HANDS ON PANTS AND KEEPS THEM UP.
--- NOTE | 2019-10-25 12:34 | NUR ---
PT NEEDED ENCOURAGED TO SIT AT A TABLE TO EAT LUNCH. PT DIRECTED TO TABLE AND HE IS EATING AT THIS TIME.
--- NOTE | 2019-10-25 13:52 | NUR ---
Ann Bertrand at the [facility] called to receive an update on pt; OLIVIA provided this update. SW faxed updates to [phone]. SW team will continue to follow pt during her stay on this unit.
--- NOTE | 2019-10-25 14:20 | NUR ---
PT REFUSING EKG AT THIS TIME. PT WALKING AROUND UNIT AND NOT ABLE TO STAY STILL.
--- NOTE | 2019-10-25 15:03 | NUR ---
OLIVIA contacted Priyanka at [phone]. No answer. OLIVIA lft a msg asking for a return call.
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
--- NOTE | 2019-10-25 16:10 | NUR ---
PT STILL RESTING IN THE RECLINER. CALLED SED SPECIAL EDUCATION TEACHER THAT HE WAS IN THE RECLINER. SHE STATED SHE WILL BE UP IN A LITTLE BIT.
--- NOTE | 2019-10-25 16:45 | NUR ---
PT ALLOWED THE AUTOMATION SALES MANAGER TO PERFORM THE TEST. PT DID GRAB ONTO WIRES.
--- NOTE | 2019-10-25 17:11 | NUR ---
PT RESTING AT THIS TIME IN RECLINER.
[2019-10-25 21:09] VITALS: BP 128/78
--- NOTE | 2019-10-25 23:20 | H ---
[facility] [place] [address] [place] [address] HISTORY AND PHYSICAL Name: SCOT FLOREZ Room #: 518A-A ADM IN M.R.#: [id number] Admission: 10/21/19 Attend Phys: Bashir Weir DO Discharge: Date of : 38 Report #: [id number] THIS REPORT FOR: cc: Doug Barton,Doug Bolanos,Bashir Taveras DO ~ CC: Bashir Barton DATE OF SERVICE: 10/22/2019 INPATIENT PSYCHIATRIC EVALUATION PRIMARY ATTENDING PHYSICIAN: Bashir Weir DO. RUSSET REPAIRER: Neil Martinez MD and his nurse practitioner, Sveta Valente. REASON FOR ADMISSION: Sent from the [facility] for resistive, restless behaviors, inappropriate elimination, some degree of combativeness. HISTORY OF PRESENT ILLNESS: This is an 79-year-old male who only speaks Marshallese, known to me from prior admission in September 2018 at [facility]. The patient has been residing at [facility] since May 2019; he was last admitted here on the [facility]. He was discharged to the [facility]. It is unclear why he was moved to nursing homes. In any event, the patient was attempted to be interviewed in British and Marshallese. He was basically one-word answers, so, okay, the end. He was not receptive to further psychiatric interview; therefore, most of this is going to be from group home notes and chart. Again, 79-year-old male. His diagnoses list from group home includes unspecified dementia with behavioral disturbance, history of multiple fractures of the pelvis, COPD by history, GERD by history, prostate disorder by history, osteoarthritis, insomnia, past history of depression. MEDICATIONS: From the group home as of 10/21/2019 include Tylenol 325 two tabs q.4 hours p.r.n. for discomfort. Also for knee pain, cholecalciferol 2000 International Units oral daily, cimetidine 400 mg by mouth for GERD. Eucerin cream apply to the areas of skin twice per day. Flomax 0.4 mg p.o. daily, hydrocortisone cream 0.5% applied to dry skin. Melatonin 3 mg by mouth at bedtime, mirtazapine 15 mg by mouth at bedtime, which is appetite stimulant. Namenda XR 21 mg daily, olanzapine 2.5 mg by mouth one time a day and 5 mg by mouth at bedtime for psychotic disorders. MiraLax daily, Senokot 1 tablet by mouth at bedtime for bowel regulation and tramadol 50 mg q. 4 p.r.n. for severe pain. [facility] [address] [place] [address] HISTORY AND PHYSICAL Name: GAUTAMSCOT Room #: 518A-A [facility] IN M.R.#: [id number] Admission: 10/21/19 Attend Phys: Bashir Weir DO Discharge: Date of : 38 Report #: [id number] LABORATORY DATA: The patient's most recent labs on 10/14/2019 at group home were: Sodium 139, potassium 4.2, chloride 105, bicarbonate 27, glucose 117, BUN 34. Previous BUN result on 14 of June was 16, blood cell count 8.7 of WBC, H and H 10.6 and 32.1, platelets 229. There were some behavioral notes from group home that I can quote to support the admission. He also apparently had a psychiatric admission in early May for delirium and dementia at [facility] and actually for some reason I do not have the group home notes handy, but over the phone yesterday, he was pooping, peeing and appropriately restless, resistive to care, difficulty redirecting. Apparently, there had been an incident about a week prior. Additional history and from previous notes here at [facility] and my 09/09/2018 evaluation, at that time, he was known to me when I worked at [facility] and he had been sent 3 times in the last week from a nursing facility. He has a long history of dementia, unclear when he was last able to work. I do not believe he is at present and his is his DPOA. Her name is Priaynka Snow at [phone]. He has had a right total knee arthroplasty, prior antipsychotic trials besides olanzapine have included quetiapine and risperidone, looks like Dr. Silvestre saw in May at [facility]. PHYSICAL EXAMINATION: VITAL SIGNS: Today, temperature 36.6, pulse 72, respirations 16, BP 102/65. Labs from our ER, H and H 10.7 and 32.3 white count 6.9, platelet count 309. Blood gas was done, not sure why. Carboxyhemoglobin 2.1, bicarbonate 21.4. The patient's pO2 is 40.3, pCO2 of 39.3. Chemistries: Sodium 136, potassium 4.1, chloride 103, bicarbonate 26, anion gap 7, BUN 28, creatinine 1.1, estimated GFR 64, glucose 163. A1c is pending. Calcium 8.3, total bilirubin 0.4, AST 19, ALT 21, alkaline phosphatase 112, total protein 8.4, albumin 3.1. B12 level low at 321, in my opinion. TSH normal at 2.637. Urinalysis was completely negative. PHYSICAL EXAMINATION: MUSCULOSKELETAL: Normal gait and station. MENTAL STATUS EXAMINATION: This is a well-developed, male seen on the Geriatric Psychiatry Unit. Attention limited. Concentration limited. Speech is normal rate. Thought process linear and limited. Thought content focused on just the questions being asked. No psychomotor agitation. No psychomotor retardation. Mood and affect congruent and euthymic. I did not permit related to assess him for suicidality, homicidality, did not appear to have overt auditory, visual, or tactile hallucinations. Insight impaired, judgment impaired. Fund of knowledge well below average. FORMULATION: An 79-year-old male admitted for behavioral disturbance, long history of dementia. DIAGNOSES: Major neurocognitive disorder, unspecified, with behavioral disturbance; active comorbidities including osteoarthritis, gastroesophageal [facility] [address] [place] [address] HISTORY AND PHYSICAL Name: SCOT FLOREZ Room #: 518A-A ADM IN ..#: [id number] Admission: 10/21/19 Attend Phys: Bashir Weir DO Discharge: Date of : 38 Report #: [id number] reflux disease, vitamin D deficiency. PLAN: Evaluate, stabilize, obtain collateral. Regarding his medications, went ahead and adjust olanzapine 2.5 mg sublingual b.i.d., mirtazapine 15 mg at bedtime. Discontinue melatonin, continue famotidine 20 mg daily, lidocaine patch was ordered by hospitalist, MiraLax was ordered as well as hydrocortisone cream, vitamin D. I will defer his TSH issue to the hospital. ESTIMATED LENGTH OF STAY: 10-14 days. He needs to call his DPOA. The patient is currently a full code, but I am going to make him a no code based on the advanced dementia he has. STRENGTHS: He is insured, has DPOA. WEAKNESSES: Advanced dementia. Also, has difficulty because he is Marshallese speaking and there are not generally south korean speakign staff around are nursing homes . Time spent at least 60 minutes on case today, greater than 50% in coordination of care. <ELECTRONICALLY SIGNED> By: Bashir Weir DO 10/25/19 2320 1428 1526 Bashir Weir DO /nt
--- NOTE | 2019-10-25 23:36 | NUR ---
Patient has been up for approximately 1 hour. Patient had urinated while he was sleeping. Patient required 3 staff for connie care and linen change. Patient hitting, pinching staff, cursing. Nurse has been sitting 1:1 with patient since. Patient continues to remove clothing, attempting to get up independently. Unable to follow safety instructions. Nurse attempted to provide HS medications several times. Patient refusing by pushing nurse away, even refusing to take a drink of water. MD notified. Order obtained for Geodon 15mg IM. Medication administered to left deltoid with staff assist x2. Nurse continuing to sit 1:1 with patient at this time.
--- NOTE | 2019-10-26 00:43 | NUR ---
Assumed care of patient this pm shift. Patient sitting in mileu in a reclining chair somewhat lethargic at the beginning of the shift. Patient is not continent of bowel or bladder and had an accident in the chair, which was promptly cleaned up and patient redressed in clean clothes and a pull up. Patient woke up about mid shift and started wondering around the unit with the rn to help with the wobbly gait. Patient refused his evening/night medications and became aggressive with staff, hitting and pinching. Patient would not redirect and was given an im of ziprasidone. Patient is bulgarian speaking and difficult to understand. Patients assessment shows clear breath sounds, active bowel sounds, and s1 s2 heard with auscultation. Patient was offered water and refused. We will continue to monitor patient per hospital policy.
[2019-10-26 07:39] VITALS: BP 110/63
--- NOTE | 2019-10-26 08:47 | EKG ---
[facility] [address] [place] [address] ELECTROCARDIOGRAM REPORT Name: SCOT FLOREZ Room #: [facility] ADM IN M.R.#: [id number] Admission: 10/21/19 Attend Phys: Bashir Weir DO Discharge: Date of : 38 Report #: [id number] THIS REPORT FOR: cc: Doug Barton Scott DO Lundgren,Massimo Taveras MD [facility] THIS REPORT FOR: //name// [facility] Test Date: 2019-10-25 Test Time: 16:23:46 Pat Name: SCOT FLOREZ Department: Room: [facility] Gender: M Perioperative Educator: Dimple LEON : 1940 Requested By: Bashir Weir Order Number: [id number] MD: Massimo Joy Measurements Intervals [place] Rate: 78 P: 42 NM: 156 QRS: 3 QRSD: 92 T: 70 QT: 369 QTc: 421 Interpretive Statements Sinus rhythm No significant abnormality Compared to ECG 09/19/2018 17:11:45 No significant change was found Electronically Signed On 10-26-2019 8:46:42 CDT by Massimo Joy [email or web address] <ELECTRONICALLY SIGNED> By: Massimo Joy MD, FACC 10/26/19 0846 1623 1623 Massimo Joy MD, [facility] /EPI
[2019-10-26 09:11] VITALS: BP 110/63
--- NOTE | 2019-10-26 10:23 | NUR ---
OLIVIA received a vm from Priyanka. OLIVIA returned her call. No answer lft msg. SW Team will continue to contact pt during his stay on this unit.
--- NOTE | 2019-10-26 12:13 | NUR ---
RESUMMED CARE FROM OVERNIGHT SHIFT THIS AM, PATIENT IN DAY ROOM WONDERING AROUND ROOM. BREAKFAST CAME AND PATIENT ATE BREAKFAST AND MEDICATION CRUSHED AND OUT IN YOGART. PATIENTS ABDOMEN SOFT AND ROUND BOWEL SOUNDS PRESENT LUNGS CLEAR. PATIENT HAD AN EPISODE OF INCONTIENCE BOWEL AND BLADDER, PATIENT CLEANED UP. PATIENT UNABLE TO COMMUNICATE WHETHER HE HAS SI/HI/AH/VH DUE TO PATIENT SPEAKS [place] CITIZEN. PATIENT IS VERY IMPULSIVE AND GOES IN OTHER PATIENTS ROOM AND URINATES ON FLOOR OF OTHER PATIENTS ROOM. PATIENT NEEDS TWO STAFF TO DUE HYGIENE, PATIENT CAN BE COMBATIVE AT TIMES. WILL CONTINUE TO MONITOR PATIENT FOR BEHAVIORS AND SAFETY.
--- NOTE | 2019-10-27 05:17 | NUR ---
Assumed care of pt @ 1900. Pt calm et cooperative most of shift. Took medications crushed in yogurt without difficulty. Ambulates the halls ad jose with steady gait. Spent all of shift in dayroom but unable to socialize with peers due to language difficulties. VSWNL. Health assessment with no abnormalities noted at present time. Unable to assess SI/HI due to language difficulties but pt does not appear to be in any acute emotional distress at present time. Was given PRN Ziprasidone around 0500 for agitation. Currently resting in recliner in dayroom with eyes open. Will continue to monitor per protocol.
[2019-10-27 07:40] VITALS: BP 110/57
--- NOTE | 2019-10-27 13:51 | NUR ---
PATIENT HAS BEEN UP, AND OUT ON THE UNIT, SITTING IN DAY ROOM WITH 1:1 STAFF SITTING BY HIS SIDE. PATIENT ATE 100% OF BREAKFAST, AND LUNCH. PATIENT TOOK ALL MEDICATION WHOLE WITHOUT DIFFICULTY. PATIENT AMBULATES WITH SLIGHTLY UNSTEADY GAIT. AFFECT IS FLAT, AND BLUNTED, MODD IS CALM. PATIENT IS UNABLE TO APPROPRIATELY RESPOND TO ASSESSMENT QUESTIONS DUE TO COGNITIVE IMPAIRMENT, AND LANGUAGE BARRIER, SPEAKS ONLY [place]. PATIENT HAS HAD BOWEL MOVEMENT X 2 TODAY, GOOD PERICARE GIVEN WITH ASSIST OF TWO STAFF. PATIENT RESISTS CARE, AND CAN BE IRRITABLE WITH ADL, AND TOILET HYGIENE. NO AGGRESSION, OR AGITATION NOTED AT THIS TIME, WILL CONTINUE TO REDIRECT, AND MONITOR FOR SAFETY.
[2019-10-27 20:49] VITALS: BP 107/52
--- NOTE | 2019-10-28 02:10 | NUR ---
10-27-19 CARE TRANSFERED 1914 OBSERVED PT SITTING IN RECLINER WITH 1:1 MATERIAL ENGINEER IN CHAIR BESIDE PT. 1934 PT ALERT AND AWAKE SITTING IN RECLINER IN DAY ROOM. PT IS URDU SPEAKING ONLY SO THIS IS A LIMITED ASSESSMENT R/T PT REFUSAL TO USE PH FOR INTERPERTATION. PT DOES NOT APPEAR TO BE IN ANY ACUTE EMOTIONAL DISTRES AT PRESENT TIME. DURING MEDICATION ADMIN. PT HAD ZERO DIFFICULTIES. LATER PT WAS ASSISTED TO BED WITH THE HELP OF THE 1:1 MATERIAL ENGINEER. POSITION PT IN COMFORT. 10-28-19 0100 PT LEFT SIDE LYING RESTING WITH EYES CLOSED. OF NOTE, PLEASE REFER TO NURSING INTERVENTIONS FOR MORE INFORMATION. ZERO ACUTE DISTRESS NOTED. WILL CONTINUE TO MONITOR PER [facility] PROTOCOL.
[2019-10-28 07:15] VITALS: BP 127/74
--- NOTE | 2019-10-28 09:37 | NUR ---
0700 ASSUMED CARE OF PATIENT, PATIENT SITTING IN ARYA CHAIR IN DAYROOM. PATIENT QUIET WITH EYES CLOSED. 0800 PATIENT EATING BREAKFAST, MEDICATION TAKEN WITHOUT DIFFICULTY. PATIENT DENIES PAIN. WILL CONTINUE TO OBSERVE
--- NOTE | 2019-10-28 11:52 | NUR ---
RT Progress Note- Johnathon has not participated in recreation therapy groups since his admission to [facility] (language barrier, restlessness.) He has been on 1;1 with staff due to wandering behaviors and is difficult to redirect. He fails to make eye contact when approached and continues to walk rather than listening.
--- NOTE | 2019-10-28 19:57 | NUR ---
1510 PATIENT WAS RESTING IN CHAIR IN DAYROOM WHEN WALL STEAMER NOTICED PATIENT EXTEND ARM IN AIR TRYING TO GRAB SOMETHING. PATIENT CALLING OUT FOR KENYA HIS DAUGHTER. WHEN WALL STEAMER ATTEMPS TO TALK TO PATIENT , PATIENT DOES NOT RESPOND TO WALL STEAMER. PATIENT IS HAVING SOME HALLUCINATIONS. PATIENT UP IN ROSS AMBULATING WITH FRONT OFFICE CLERK SPITTING EVEN AFTER ASKED NOT TOO. WILL REPORT OFF TO NEXT SHIFT
--- NOTE | 2019-10-29 01:19 | NUR ---
10-28-19 CARE TRANSFERED 1914 OBSERVED PT SITTING IN DAY ROOM RESTING WITH EYES CLOSED. 1950 PT SITTING IN RECLINER IN DAY ROOM, PT IS SWISS SPEAKING ONLY AND REFUSES TO USE THE INTERPTER LINE PT DOES RESPONED TO NAME AND IS COOPERATIVE DURING NURSING ASSESSMENT. RECEIVED REPORT FROM TELECOMMUNICATOR VSS, REVIEWED VS NUMBERS; RR EVEN AND NONLABORED ON RA. UNABLE TO ASSESS SI/SH/HI/VAH R/T PT IS SWISS SPEAKING ONLY; PT DID RESPOND TO DOLOR (PAIN) AND SHOOK HEAD NO. PT IS 1:1 WITH TELECOMMUNICATOR. PLEASE REFER TO NURSING INTERVENTION FOR MORE INFORMATION. ZERO S/S OF ACUTE DISTRESS NOTED. DURING ROUNDING NOTED PT RESTING IN RECLINER WITH EYES CLOSED. WILL CONTINUE TO MONITOR PER [facility] PROTOCOL.
[2019-10-29 05:49] LABS: HEMATOCRIT 36.1 % (42.0-52.0); HEMOGLOBIN 12.1 gm/dL (14.0-18.0); MCH 29.2 pg (26.0-34.0); MCHC 33.5 g/dL (28.0-37.0); MCV 87.3 fL (80.0-100.0); RBC 4.14 mil/uL (4.50-6.00); RDW 16.7 % (10.5-14.5); WBC 5.7 thou/uL (4.0-11.0)
[2019-10-29 06:00] LABS: CALCIUM 8.5 mg/dL (8.5-10.1); CREATININE 0.9 mg/dL (0.7-1.3); MAGNESIUM 2.1 mg/dL (1.8-2.4)
[2019-10-29 08:35] VITALS: BP 124/68
--- NOTE | 2019-10-29 08:45 | NUR ---
Assess for length of stay. Admit to [facility] with aggressive behavior. Cape Verdean speaking. Has excellent appetite, eats 100% of double portion ordered meals. Vitamin D deficiency and on supplementation. Has 2 very different wts of 140 vs 126 lb?? Physician has indicated moderate protein calorie malnutrition: RD will defer. Will be weighed weekly, follow wt trends for accuracy. Low nutrition risk
--- NOTE | 2019-10-29 09:22 | NUR ---
0700 ASSUMED CARE OF PATIENT, PATIENT SITTING IN DAYROOM IN ARYA CHAIR AT THAT TIME WITH EYES CLOSED. PATIENT NOTED WITH LAP JONN ON AND WITH 1:1. NO CHAIR ALARM IN PLACE. PATIENT HAS YELLOW SHIRT ON. 08 PATIENT SAT UP WITH ASSISTANCE FROM 1:1 SALESPERSON SHOES. SALESPERSON SHOES ASSISTED PATIENT IN EATING BREAKFAST. PATIENT HAS A VERY GOOD APPITITE. PATIENT TAKEN MEDICATIONS CRUSHED IN JUICE. PATIENT CALM AND QUIET. PATIENT ABLE TO GIVE ME HIS NAME BUT NOT ABLE TO ANSWER OTHER QUESTIONS. PATIENT SPEAKS IRAQI AND INSIDE CONTRACTOR SALES SPEAKS IRAQI. WHEN INSIDE CONTRACTOR SALES ASKS QUESTIONS PATIENT TALKS ABOUT SOMETHING DIFFRENT. PATIENT LUNG SOUNDS CLEAR, BS ACTIVE. VS BP- 124/68 P- 59 R-17 T-97.9 O2 SATS- 96%. WILL CONTINUE TO OBSERVE. 0846 PATIENT UP AMB IN ROSS WITH 1:1 SALESPERSON SHOES. PATIENT ASSISTED TO BATHROOM DURING THIS TIME. WILL CONTINUE TO OBSERVE
--- NOTE | 2019-10-29 12:31 | NUR ---
Pt was discussed in tx team and Dr. Weir asked OLIVIA to check with pt's facility on if they are okay with him medicating this pt more; he is still spitting and also roaming the hallways at a very fast pace. He still appears to not be aware of what is occuring around him either which makes him a big fall risk. OLIVIA contacted [facility] and spoke with Maryuri who agreed yes she would like pt to be more medicated. She also said they have a few positive COVID-19 residents and therefore pt cannot be spitting. She said pt will be on quarantine with a 1-to-1 when he returns. She also said he will need a COVID test to return. OLIVIA contacted Priyanka to discuss this matter with her. No answer. OL[facility]IA left [facility]. SW team will continue to follow pt during his time on this unit.
--- NOTE | 2019-10-30 04:53 | NUR ---
Assumed care of pt @ 1900. Pt calm et cooperative this shift. Took medications crushed in yogurt without difficulty. Pt in dayroom with peers but unable to socialize with peers due to language barrier. Ambulates the halls ad jose with slightly unsteady gait. VSWNL. Health assessment with no abnormalities noted at present time. Unable to assess SI/HI due to language barrier but pt does not appear to be in any acute emotional distress at present time. Currently resting in recliner in dayroom with eyes open and babbling to himself in Persian. Will continue to monitor per protocol.
[2019-10-30 08:15] VITALS: BP 130/77
--- NOTE | 2019-10-30 09:28 | NUR ---
ASSUMED CARE AT 0700 THIS MORNING. PT. SITTING IN A RECLINING CHAIR. HE WAS ASLEEP FOR A FEW MINUTES. HE WAKENED AND ATE BREAKFAST AND TOOK HIS MEDS, CRUSHED IN APPLESAUCE. HE ATE THE REMAINDER OF THE APPLESAUCE IN THE CONTAINER. HE WAS COOPERATIVE WITH THIS.
[2019-10-30 10:20] VITALS: BP 130/77
--- NOTE | 2019-10-31 05:15 | NUR ---
Assumed care of pt @ 1900. Pt calm et cooperative this shift. Took medications crushed in pudding without difficulty. Rested in recliner in dayroom with eyes closed off et on throughout the shift. Pt did not socialize with peers due to language barrier. Did not witness patient ambulation this shift. VSWNL. Health assessment with no abnormalities noted. Unable to assess SI/HI due to language barrier but pt does not appear to be in any acute emotional distress at present time. Currently resting in recliner in dayroom with eyes closed. Will continue to monitor per protocol.
--- NOTE | 2019-10-31 10:39 | NUR ---
Leidy WAS IN THE DAY ROOM THIS AM AWAKE AND AWITING TO EAT. hE AT MOST OF HIS BKF. THIS AM. MEDICATION TAKEN IN APPLE SAUCE. PT WAS GIVEN A SHOWER, THIS AM. PT HAD A LARGE BM THIS AM. COMMUNICATION WITH PT IS AKRIVERA WHALEN TO LEX JAMES. LUNGE WERE CLEAR X2, EDEMA MINIMAL, IN CHAIR WITH LEGS ELEVATED. PEDAL PULSE STRONG. PT IS IN TV ROOM WATCHING SCREEN AT THIS TIME.
--- NOTE | 2019-10-31 16:01 | NUR ---
Pt unable to participate in group due to cognitive deficit.
--- NOTE | 2019-10-31 16:04 | NUR ---
Denys ate 2 servings for lunch to day.Medications are tken well as they are put in apple sauce. Pt walked the oliv[facility] ways with staff assist. A
[2019-10-31 21:00] VITALS: BP 130/77
--- NOTE | 2019-11-01 01:56 | NUR ---
Assumed care of patient this pm shift. Patient sitting in the mileu in a reclining chair. Patient is a one to one while awake. Patient is a falls risk. Patient speaks bulgarian and has difficulty articulating his thoughts to non-bulgarian speakers. Patient does not appear to be in any pain. Patient appears comfortable. Patient taken to the restroom and eased onto the toilet with 2 caregivers for safety due to an unsteady gait. Patients assessment shows clear breath sounds, active bowel sounds, and s1 s2 heard with auscultation. Patient monitored for safety per hospital protocol. We will continue to monitor.
[2019-11-01 07:00] VITALS: BP 119/69
--- NOTE | 2019-11-01 14:09 | NUR ---
pt was in day room area in lounge chair. Lungs clear x2 and pedal pulse strong and no edema noted. Heart sounds clear. Pt is being monitored by staff 1;1, ambulating with gait belt with assistance from staff. Medications taken only being crushed in apple sauce or pudding. Denys can be agressive and combative at times. Staff is toileting pt to avoid bm"s or urinating in hallway.
[2019-11-01 20:12] VITALS: BP 90/64
[2019-11-01 22:00] VITALS: BP 90/64
--- NOTE | 2019-11-02 02:38 | NUR ---
Assumed care of patient this pm shift. Patient was sitting in the mileu and walking in the hallway with a gait belt and nurse aide. Patient speaks albanian and has a difficult time understanding what is being said even when spoken to in albanian. Patient is very impulsive and likes to explore the unit frequently. Patient does push at the double doors at the entrances and needs to be monitored accordingly. Patient does not appear to be in pain. Patient did try to elbow the RN when he was being redirected. Patients affect is flat. Patients assessment shows clear breath sounds, underactive bowel sounds, and s1 s2 heard with auscultation. We will continue to monitor for safety per hospital protocol.
[2019-11-02 05:40] LABS: HEMATOCRIT 36.1 % (42.0-52.0); MCHC 33.2 g/dL (28.0-37.0); MCV 87.3 fL (80.0-100.0); RBC 4.13 mil/uL (4.50-6.00); RDW 16.7 % (10.5-14.5); WBC 6.8 thou/uL (4.0-11.0)
[2019-11-02 05:49] LABS: MAGNESIUM 2.2 mg/dL (1.8-2.4); POTASSIUM 3.9 mmol/L (3.5-5.1)
[2019-11-02 09:05] VITALS: BP 124/62
[2019-11-02 10:25] VITALS: BP 124/62
[2019-11-02 10:38] VITALS: BP 124/62
--- NOTE | 2019-11-02 10:46 | NUR ---
1045 RESUMMED CARE FROM OVERNIGHT SHIFT THIS AM, PATIENT IN DAY ROOM SLEEPING IN RECLINER. PATIENT ATE BREAKFAST TOOK MEDICATION CRUSHED IN YOGART. PATIENTS ABDOMEN SOFT ROUND BOWEL SOUNDS PRESENT LUNGS CLEAR. PATIENT UNABLE TO TELL ME ABOUT SI/HI/AH/VH DUE TO LANGUAGE BARRIER. PATIENT IS SOMETIMES IMPULSIVE IS A 1 TO 1 WA. PATIENT LIKES TO WALK THE HALLS WITH A GAIT BELT ON, WILL CONTINUE TO MONITOR PATIENT FOR SAFETY AND BEHAVIORS.
--- NOTE | 2019-11-02 12:31 | NUR ---
SW reviewed pt's chart for updates. SW team will continue to follow pt during his stay on this unit.
--- NOTE | 2019-11-03 05:21 | NUR ---
Assumed care of pt @ 1900. Pt calm et cooperative this shift. No behaviors noted. Took medications crushed in yogurt without difficulty. Ambulates the halls ad jose with steady gait. Pt going in et out of peers' rooms. Does not socialize with peers due to language barrier. Refused viatl signs this shift. Refused health assessment this shift. Unable to assess SI/HI due to language barrier but pt does not appear to be in any acute emotional distress at present time. Currently resting in bed with eyes closed. Will continue to monitor per protocol.
[2019-11-03 07:30] VITALS: BP 98/66
--- NOTE | 2019-11-03 12:53 | NUR ---
RAS WAS IN DAY ROOM WHEN i ARRIVED ON DUTY. ALL OF HIS BREAKFAST WAS EATEN. ON ASSISEMRNT HEART SOUNDS WERE CLEAR, PEDAL PULSE STRONG ,NO EDEMA NOTED . NO BM THUS FAR TODAY. MEDICAIONS TAKEN BY MOUTH WITH NO RESISTANCE. RAS PARTICIPATED IN GROUP TODAY.HE IS PRESENTLY IN DAY ROOM WATCHING TV.
[2019-11-03 13:04] VITALS: BP 98/66
--- NOTE | 2019-11-03 13:07 | NUR ---
OLIVIA contacted [facility] at the [facility] and spoke to Shreya. OLIVIA updated her on that pt will be ready for d/c on either Friday or Friday whichever is better for the facility. Shreya said she will talk with nursing and call OLIVIA back. OLIVIA faxed updates for pt. OLIVIA team will continue to follow pt during his stay on this unit.
--- NOTE | 2019-11-03 13:11 | NUR ---
SCOT HAS BEEN WALKING THE HALLWAYS SINCE I ARRIVED @ 7 AM, INGRID WHEN TAKEN. HE URINEATE WERE EVER. STAFF TRYS TO TAKE HIM TO THE BATHROOM TO NO AVIAL. HEART SOUNDS ARE CLEAR AT THIS TIME PEDAL PULSE STRONG, AND EQUAL . aLL FOOD EATEN , MEDICATIONS TAKEN WITH NO RESISTANCE WHEN IN APPLE SAUCE. PT DOES NOT PARTICIPATE IN GROUPS. AT THIS TIME PT IS IN DAY ROOM.
[2019-11-03 19:49] VITALS: BP 116/77
[2019-11-03 20:15] VITALS: BP 116/77
--- NOTE | 2019-11-04 00:41 | NUR ---
PATIENT WAS UP PACING THE HALLS WHEN I CAME ON SHIFT AT 1900. ASSISTED PATIENT TO THE BATHROOM AND BACK TO DINING ROOM WHERE HE HAD HS SNACK. HE HAS BEEN COOPERATIVE AND REDIRECTABLE TONIGHT. HE SAT IN DINING ROOM IN RECLINER AND SLEPT FOR AWHILE. HE TOOK HIS MEDS CRUSHED IN PUDDING. HE WAS ASSISTED TO BED. HE AMBULATES WITH STEADY GAIT TONIGHT. ASSISTED TO BED BY ENVELOPE STUFFER AND NURSE. BED ALARM ON. DOES NOT APPEAR TO HAVE PAIN. NO SI/HI. NO HALLUCINATIONS NOTED. BED IN LOW POSITION AND BED ALARM ON. CONTINUING ROUNDS TO ASSESS STATUS AND SAFETY OF PATIENT.
--- NOTE | 2019-11-04 08:04 | NUR ---
RT Progress Note- Johnathon has not been an active participant in recreation therapy. Patient is Iranian speaking only and does not accept translation via the phone so this does also hinder his participation. It is difficult to maintain focus and concentration upon interaction as well.
--- NOTE | 2019-11-04 08:15 | NUR ---
Nutrition update: Follow up for oral intake. Per EMR, anticipated discharge early next week on 11/07 or 11/08. Pt is [place] speaking; not accepting of translation via phone per latest staff notes. Chart reviewed. Pt continues w/ excellent appetite and po intake. Meal average at 90-100% of almost every single meal, though he did refuse dinner last night (otherwise, no other meal refusals). Recent BM 10/31, continues on daily miralax. Receiving vitamin B12 and cholecalciferol for supplementation as well. Given consistently strong PO and very healthy weight and BMI, no new nutrition needs identified. Remains low nutrition risk.
[2019-11-04 09:59] VITALS: BP 117/78
--- NOTE | 2019-11-04 12:03 | NUR ---
0700 ASSUMED CARE OF PATIENT, PATIENT SITTING IN CHAIR IN DAYROOM. 0800 PATIENT ATE 100% OF BREAKFAST. MEDICATION TAKEN CRUSHED IN APPLESAUCE. PATIENT IS CALM AT THAT TIME. PATIENT IS ALERT AND ORIENTED X1 PERSON ONLY. NO C/O PAIN WHEN ASKED. UNABLE TO ASSESS DUE TO PATIENT TALKING ABOUT SOMETHING DIFFRENT OTHER THAN WHAT IS ASKED. [employer] CONSULTANT DOES SPEAK CHILEAN AND IS ABLE TO COMMUNICATE WITH PATIENT. PATIENT IS REDIRECTABLE AND FOLLOWS DIRECTION WHEN FOOD IS INVOLVED. PATIENT AMBULATES IN ROSS WITH STEADY GAIT. YELLOW SHIRT IN PLACE, YELLOW SOCKS ON AND YELLOW ARM BAND ON. WHEN PATIENT IS SITTING IN CHAIR ALL FALL RISK PRECAUTIONS ARE IN PLACE HOWEVER DUE TO NO AVAILABLE ALARM BOXES NO CHAIR ALARM IS BEING USED FOR PATIENT. WILL CONTINUE TO OBSERVE. BOXES
--- NOTE | 2019-11-04 14:13 | NUR ---
PATIENT VIEWED URINATING IN HALLWAY. NITRIC ACID CONCENTRATOR OPERATOR REKHA TO EXPLAIN TO PATIENT ABOUT THIS ACTION IS NOT ACCEPTABLE. PATIENT DOES NOT LISTEN AND GOES ABOUT HIS AMBULATING IN THE ROSS. CUFF TURNER MACHINE OPERATOR'S ASSISTED IN CLEANING UP THE FLOOR. PATIENT CONTINUES TO AMB WITH STEADY GAIT.
--- NOTE | 2019-11-04 14:36 | NUR ---
OLIVIA contacted Shreya with [facility] about pt discharge. She told OLIVIA that they are attempting to look for alternate placement for pt because they do not believe that they can meet his needs. She said that his family is also aware. She said if that does not work out, she will take him back Friday. OLIVIA and Shreya will connect on Tuesday 11/07 to discuss discharge plans. OLIVIA team will continue to follow pt during his stay on this unit.
[2019-11-04 19:35] VITALS: BP 132/53
[2019-11-04 20:20] VITALS: BP 132/53
--- NOTE | 2019-11-05 01:44 | NUR ---
PATIENT WAS WALKING THE [facility] UNIT TONIGHT WITH STEADY GAIT. HE STAYED TO HIMSELF. AFTER HS SNACK HE SAT IN CHAIR IN DINING ROOM AND WAS SLEEPY. HE TOOK HIS HS MEDS CRUSHED IN YOGURT. HE DOES NOT APPEAR TO BE IN PAIN. HE WAS CALM AND COOPERATIVE. HE WAS ASSISTED TO BED WITHOUT ISSUE AND IS SLEEPING AT THIS TIME. BED IN LOW POSITION AND BED ALARM ON. NO BEHAVIORS NOTED.
[2019-11-05 07:56] VITALS: BP 134/72
--- NOTE | 2019-11-05 09:25 | NUR ---
0700 ASSUMED CARE OF PATIENT, PATIENT IN BED AT THAT TIME. PATIENT SLEEPING AND APEARS DROWSY. ASSISTED PLANOGRAMMER IN GETTING PATIENT CLEANED UP AND CHANGED. PATIENT TRANSFERED TO AND OUT TO DAYROOM FOR BREAKFAST. PATIENT ATE 100% OF MEAL. MEDICATION TAKEN CRUSHED IN YOGURT. PATIENT UNABLE TO COMPREHEND QUESTIONS ASKED OF HIM. RUBY ON RAILS SOFTWARE DEVELOPER SPEAKS WELSH AND SIMPLE QUESTIONS REGARDING MEALS PATIENT WILL ANSWER. PATIENT PRESENT IN GROUP AT THIS TIME.
--- NOTE | 2019-11-05 19:14 | NUR ---
PATIENT CONTINUED TO PACE THE HALLS ALL DAY WITH EATING HE AMBULATED. PATIENT DOES NOT COOPERATE WHEN ASKED QUESTIONS. PATIENT TAKES MEDS WELL CRUSHED IN YOGURT.
[2019-11-05 19:35] VITALS: BP 91/52
--- NOTE | 2019-11-06 05:23 | NUR ---
Assumed care of pt @ 1900. Pt calm et cooperative this shift. Took medications crushed in yogurt without difficulty. Ambulates the halls ad jose with somewhat steady gait. Unable to socialize with peers due to language barrier. VSWNL. Health assessment with no abnormalities noted at present time. Unable to assess SI/HI due to language barrier but pt does not appear to be in any acute emotional distress at present time. Currently resting in recliner in dayroom with eyes closed. Will continue to monitor per protocol.
[2019-11-06 08:21] VITALS: BP 150/112
[2019-11-06 08:33] VITALS: BP 101/56
--- NOTE | 2019-11-06 09:58 | NUR ---
0700 ASSUMED CARE OF PATIENT, PATIENT SITTING IN CHAIR IN DAYROOM AT THAT TIME. PATIENT UP AMB DURING BREAKFAST AND EATING WHILE WALKING. MEDICATION GIVEN CRUSHED IN APPLESAUCE WHILE AMB. PATIENT ACCESS SPECIALIST CHASING PATIENT DOWN ROSS TO GIVE HIS MEDS. PATIENT OBSERVED SPITTING IN ROSS. PATIENT DOES NOT ANSWER QUESTIONS FOR PATIENT ACCESS SPECIALIST. INABLE TO ASK QUESTIONS.
--- NOTE | 2019-11-06 17:26 | NUR ---
PATIENT AMBULATING IN ROSS WHILE EATING HIS FINGER FOODS FOR DINNER. PATIENT WILL NOT SIT DOWN FOR MEAL. PATIENT SPEAKS TO SENIOR ELECTRONICS ENGINEER ONLY WHEN IT IS REGARDS TO FOOD.
--- NOTE | 2019-11-06 23:27 | NUR ---
Pt was wandering the hallway at time of assessment. Pt guided to come sit in the dayroom. Communication limited as pt speaks welsh. Pt was cooperative with assessment. Pt took meds crushed in ice cream. Pt currently on a emily chair sleeping. Will continue to monitor.
[2019-11-07 09:06] VITALS: BP 126/77
[2019-11-07 09:18] VITALS: BP 114/65
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
--- NOTE | 2019-11-07 12:17 | NUR ---
OLIVIA recieved a message to call Pt's DPOA, Priyanka Snow [phone]. OLIVIA returned the call. Priyanka requested a picture the Pt today. OLIVIA offered a video chat to Priyanka. Priyanka stated she would prefer a picture. OLIVIA informed permission is needed from Director Trudy Solano concerning the matter. Priyanka stated " okay please try that first and let me know". OLIVIA contact Trudy Solano, [facility] Director, via cell phone. OLIVIA informed Trudy of Priyanka's request for a picture. Trudy stated it was okay to send the picture since it was a request from the DPOA. OLIVIA called Priyanka to inform that approval was recieved. OLIVIA did not reach Priyanka but left a VM concerning the approval. OLIVIA informed in the message that the picture would be sent via text message to Priyanka's cell phone number and all pictures would be erased after they have been sent. OLIVIA took two pictures from a personal cell phone and sent pictures to Priyanka @ [phone]. OLIVIA then had unit clerk Parisa witness SW erase all pictures of Pt and text message of pictures out of the personal cell phone. OLIVIA followed up with a phone call to Priyanka. OLIVIA again was unable to get a hold of Priyanka and left a VM. OLIVIA informed Priyanka that pictures had been sent to her cell phone and OLIVIA has deleted the originals out of personal cell phone.
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
[2019-11-08 07:10] VITALS: BP 131/65
--- NOTE | 2019-11-08 11:51 | NUR ---
1030 RESUMMED CARE FROM OVERNIGHT SHIFT THIS AM, PATIENT WANDERING AROUND UNIT. PATIENT ATE BREAKFAST TOOK MEDICATION CRUSHED WITH OATMEAL, PATIENTS ABDOMEN SOFT ROOUND BOWEL SOUNDS PRESENT. PATIENTS LUNGS CLEAR PATIENT IS UNABLE TO TELL YOU ABOUT SI/HI/AH/VH DUE TO LANGUAGE BARRIER. PATIENT REFUSES PHONE HVAC FIELD SERVICE TECHNICIAN. PATIENT GOES IN OTHER PEOPLES ROOMS AND URINATES OR SPITS ON THE FLOOR. PATIENT IS A FALL RISK AND WILL NOT USE WALKER OR W/C WE MONITOR PATIENT FOR POSSIBLE FALLS. PATIENT LIKES TO WANDER AROUND THE HALLS AND OTHER PATIENTS ROOMS. WILL CONTINUE TO MONITOR PATIENT FOR SAFETY AND BEHAVIORS.
--- NOTE | 2019-11-08 12:35 | NUR ---
OLIVIA spoke with Ann and Shreya with [facility] about pt. They said that pt cannot be so active and attacking staff for him to return. OLIVIA discussed pt's behaviors this past weekend and said that Dr. Weir is not thinking d/c before . They said they have been attempting to locate placement, but because of pt's family suing another facility, they have been unsuccessful. They are more than willing to take patient back, but he cannot be attacking staff. He will also be isolated when he returns. OLIVIA provided an update to Dr. Weir about pt. He said he has discussed pt's med regime with his daughter Priyanka who agreed for the doctor to be more aggressive with tx. OLIVIA will continue to follow pt during his stay on this unit.
--- NOTE | 2019-11-09 04:16 | NUR ---
11-08-19 CARE TRANSFERED 1914 OBSERVED PT SITTING IN DAY ROOM. 1954 PT PRESENTS CALM AND COOPERATIVE AND RESPONSE TO NAME, THIS IS A DIVEHI SPEAKING ONLY PT WHO WAS UNWILLING TO USE THE INTERPERTER LINE, BROUGHT PH OVER AND PT WAIVES HANDS. WHEN ASKING PT ABOUT BEING SI/SH/HI/VAH AND PAIN R/T COMMUNICATION BARRIER. OBSERVED PT GAIT STEADY. ZERO ACUTE EMOTIONAL OR MEDICAL DISTRESS NOTED. WILL CONTINUE TO MONITOR PER [facility] PROTOCOL.
[2019-11-09 08:30] VITALS: BP 110/80
--- NOTE | 2019-11-09 09:18 | NUR ---
PT WALKING AROUND UNIT, PT DID TAKE MEDS WITH ORANGE JUICE WHOLE. PT WAS CRUNCHING ON MEDS WHOLE. HAVE NOT SEEN PT SPITTING ON FLOOR THIS AM. PT DOES WANDER AROUND THE UNIT AND GOES INTO OTHERS ROOMS. NOT SIGNS OF AGGRESSIVE BEHAVIOR AT THIS TIME.
[2019-11-09 11:35] VITALS: BP 110/80
--- NOTE | 2019-11-09 13:03 | NUR ---
OLIVIA faxed updates to Charli with [facility]. [facility] team will continue to follow pt during his stay on this unit.
--- NOTE | 2019-11-09 18:09 | NUR ---
PT HAS BEEN WALKING AROUND. PT DID LIKE MEDS CRUSHED AND PUT IN PUDDING. PT GAVE THUMBS UP FOR PUDDING. PT FINISHED PUDDING CUP AND DIDN'T WANT THIS PROOFER APPRENTICE TO TAKE EMPTY CUP.
--- NOTE | 2019-11-09 22:29 | NUR ---
Care assumed of patient at 1915: Patient ambulating about the hallways at start of shift. Patient answers to name being called. Patient hebrew speaking only. Declined to use phone for pearl glue drier services. No s/s of pain or discomfort. No aggression or agitation observed. Patient incontinent of bladder. Cooperative with connie care and linen change. Patient has not been observed spitting or eliminating bladder in inappropriate places. No s/s of delusional or paranoia behaviors. Patient took HS medication crushed with ice cream without difficulty. Declined further HS snack. Patient fell to sleep quite early this evening. Assisted to recliner with staff assist x2. Patient resting quietly at this time.
[2019-11-10 08:00] VITALS: BP 119/79
--- NOTE | 2019-11-10 08:25 | NUR ---
PT UP WALKING AROUND UNIT THIS AM. PT DID EAT BREAKFAST. PT TOOK AM MEDS IN YOGART. PT DOES WELL WITH MEDS CRUSHED IN YOGART OR ICE CREAM. PT LUNGS CLEAR.
[2019-11-10 09:18] VITALS: BP 119/79
--- NOTE | 2019-11-10 11:38 | NUR ---
11/09 followup: remains on SB[facility] with regular diet, finger foods and double portions offered. Divehi speaking. Wt down about 3 lb over 2 week period from 126 to 123 lb. Had been eating 100% of meals but did refuse 2 meals yesterday. Likes pudding so will order ensure pudding bid to help promote wt maintenance. Otherwise remains low nutrition risk
[2019-11-10 13:35] VITALS: BP 115/68
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
--- NOTE | 2019-11-11 00:06 | NUR ---
Care assumed of patient at 1915: Patient ambulating about hallway and dayroom at start of shift. Patient responds to name being called. Follows simple one step directions by listening to some German and following gestures. Patient ate 100% HS snack. Patient took HS medication crushed in pudding. Patient assisted to the bathroom. Patient had been incontinent of bladder in brief. Patient originally resistant to allowing staff to assist but was able to assist in removing his brief once he was able to see and hold clean brief. Patient was able to sit in dayroom for longer periods of time and enjoyed watching others interact. No aggression or agitation observed. Patient was not observed spitting at all this shift. No inappropriate behaviors observed. Patient was able to be assisted to bed at a reasonable hour. Patient was able to fall asleep rather quickly and has been able to sleep soundly.
--- NOTE | 2019-11-11 09:48 | NUR ---
OLIVIA received a call from Ann with [facility] asking for an update. OLIVIA provided her one. Ann asked that [facility] allow pt to stay during the weekend to observe behavior. OLIVIA told Ann she will relay that to tx team. OLIVIA and Ann planned for a tentative d/c of 11/15 @11am. Ann said pt will need COVID test. SW team will continue to follow pt during his stay.
--- NOTE | 2019-11-11 11:44 | NUR ---
RT Progress Note- Johnathon continues to be present in the milieu, walking the halls and exploring the environment. He does not however participate in structured activities d/t his advanced cognitive deficits as well as his language barrier and refusal to use the pit furnace operator phone. One to one attempts have been made with little result- Johnathon has poor attention and walks away shortly after attempts are made. He has been noted to be able to sit for longer periods, observing milieu before beginning to pace again.
[2019-11-11 12:35] VITALS: BP 115/68
--- NOTE | 2019-11-11 12:52 | NUR ---
ASSUMED CARE AT 0700 THIS MORNING. PT. STABLE. HE IS UP, DRESSED AND WALKING AROUND. HE ONLY SPEAKS SETSWANA. HE AMBULATES AROUND THE UNIT NON STOP. HE HAS TO BE WATCHED TO NOT GO INTO PEERS ROOMS. HE TOOK HIS MEDICATIONS WITHOUT PROBLEMS NOTED. HE HAD A LARGE BM TODAY.
[2019-11-11 16:19] VITALS: BP 133/79
[2019-11-11 19:26] VITALS: BP 118/72
--- NOTE | 2019-11-12 02:12 | NUR ---
Care of patient assumed at 1915: Patient pacing the halls at start of shift. Patient Lebanese speaking only. Patient restless and impulsive at times. No inappropriate elimination has been observed this shift. No s/s of pain or discomfort. No aggression or agitation observed. Responds to name being called. Cooperative with one step Lebanese speaking phrases and gestures. Patient took HS medication crushed without difficulty. Ate 100% HS snack. Patient fell asleep in recliner in dayroom early this evening. Patient woke up and started to walk around. Appeared tired. Patient assisted to the bathroom with mod-max assist x2. Patient initially resistant to using the bathroom but calmed down quickly once he was shown his clean clothing and brief. Apple care provided. Incontinent of bladder in brief. Patient cooperative with walking to his bed and fell asleep without difficulty. Patient resting quietly at this time.
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
--- NOTE | 2019-11-12 14:08 | EKG ---
[facility] [place] [address] ELECTROCARDIOGRAM REPORT Name: SCOT FLOREZ [facility] M.R.#: [id number] Admission: 10/21/19 Attend Phys: Bashir Weir DO Discharge: Date of : 36 Report #: [id number] THIS REPORT FOR: cc: Doug Barton Scott DO Couchonnal,Abdelrahman Richards MD ~ THIS REPORT FOR: //name// [facility] Test Date: 2019-11-12 Test Time: 11:30:32 Pat Name: SCOT FLOREZ Department: Room: [facility] A Gender: M Contract Law Specialist: Americo WHEATLEY : 1940 Requested By: Bashir Weir Order Number: [id number] MD: Abdelrahman Griffith Measurements Intervals [place] Rate: 90 P: 61 IL: 150 QRS: 41 QRSD: 88 T: 71 QT: 348 QTc: 426 Interpretive Statements Sinus rhythm Low voltage, extremity leads Compared to ECG 10/25/2019 16:23:46 Low QRS voltage now present Electronically Signed On 11-12-2019 14:07:48 CDT by Abdelrahman Griffith [email or web address] <ELECTRONICALLY SIGNED> By: Abdelrahman Griffith MD 11/12/19 1407 1130 1130 Abdelrahman Griffith MD /EPI
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
[2019-11-12 20:00] VITALS: BP 103/68
--- NOTE | 2019-11-12 23:39 | NUR ---
Care assumed of patient at 1915: Patient resting in recliner in dayroom at start of shift. Patient easily arousable. Responds to name being called. Calm, pleasant and cooperative. No s/s of pain or discomfort observed. Took HS medication crushed without difficulty. Ate 100% HS snack. No aggression or agitation observed. Patient stood from recliner and started to fidget with buttons on his pants. Patient escorted to the bathroom where he was incontinent of bladder, continent of bowel. Cooperative with connie care and linen change. Malay speaking staff present. Patient was making clear, sensible statements at start of shift. Followed directions without difficulty. Patient speech became more mumbled and difficult to understand as the night progressed. Patient had difficulty falling asleep in bed this evening. Patient escorted to dayroom with staff where he sat in a recliner. Staff sat with patient approximately 15 minutes. Patient was able to fall asleep with staff sitting with him and is resting quietly at this time.
[2019-11-13 07:49] VITALS: BP 118/84
[2019-11-13 09:41] VITALS: BP 118/84
--- NOTE | 2019-11-13 12:22 | NUR ---
1145 RESUMMED CARE FROM OVERNIGHT SHIFT THIS AM, PATIENT PACING THE HALLS UNTIL BREAKFAST ARRIVED. PATIENT TOOK MEDICATION CRUSHED IN ENSURE PUDDING. PATIENTS ABDOMEN SOFT ROUND BOWEL SOUNDS PRESENT LUNGS CLEAR, PATIENT IS UNABLE TO TELL YOU ABOUT SI/HI/AH/VH DUE TO LANGUAGE BARRIER. 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 PATIENT IS EASY TO REDIRECT WHEN TRYING TO FIND HIS ROOM, PATIENT COOPERATIVE. WILL CONTINUE TO MONITOR PATIENT FOR SAFETY AND BEHAVIORS.
--- NOTE | 2019-11-14 01:15 | NUR ---
Assumed care on 11/13/19 @ 19:15, ambulating throughout the mileu. Cooperated with assessment, compliant with medication administration. Incontinent of bowel and bladder. Medium soft bowel movement noted. In bed at this writing, bed in low position, eyes closed, respirations even and unlabored. Will continue 12 minute rounding for patient safety.
[2019-11-14 01:20] VITALS: BP 94/40
[2019-11-14 08:56] VITALS: BP 94/72
--- NOTE | 2019-11-14 10:28 | NUR ---
BLOOD PRESSURE THIS AM 94/72--AM THORAZINE 100MG HELD AND DR MANCERA CONTACTED-ORDERS RECIEVED -BP RECHECK AT 1030 AFTER GETTING UP AND WALKING IN HALLWAYS IS 108/70- GAIT IS STEADY WITH SLIGHT LEFT SIDED LEAN. THORAZINE 100MG GIVEN PO AT 1030 CRUSHED IN ICE CREAM, REMAINS ON HIGH FALLS PRECAUTIONS. NO AGITATION SO FAR THIS SHIFT.
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
--- NOTE | 2019-11-14 14:53 | NUR ---
Discussed pt's need for COVID testing prior to discharge with nursing staff and Dr. Lim.
--- NOTE | 2019-11-14 16:56 | NUR ---
Faxed updates to [facility].
--- NOTE | 2019-11-15 00:11 | NUR ---
Assumed care om 11/14/19 @ 19:15, seated on a couch in the mileu. Alternately ambulating with a steady gait throughout the mileu. Cooperative with assessment and compliant with medications crushed in ice cream. HRRR, Lungs CTA bilat, ABD N x 4Q. Incontinent of bladder. Laid down in bed, but got up x 2. Ambulates with a fiairly steady gait, however leans to the side. Seated in emily chair and reclined to rest. Eyes closed and respirations even and unlabored. No distress noted. Will continue to observe for patient safety, rounding q 12 minutes.
--- NOTE | 2019-11-15 06:35 | NUR ---
Slept well in a emily chair in the day room for a total of 8.2 hours sleep.
[2019-11-15 07:45] VITALS: BP 107/64
[2019-11-15 09:09] VITALS: BP 107/64
[2019-11-15 09:42] VITALS: BP 107/64
--- NOTE | 2019-11-15 11:08 | NUR ---
1030 RESUMMED CARE FROM OVERNIGHT SHIFT THIS AM, PATIENT WALKING HALLS UNTIL BREAKFAST ARRIVED. PATIENT ATE BREAKFAST TOOK MEDICATION CRUSHED IN ENSURE. PATIENT NOT ABLE TO TELL YOU ABOUT SI/HI/AH/VH DUE TO LANGUAGE BARRIER. PATIENTS ABDOMEN SOFT ROUND BOWEL SOUNDS PRESENT LUNGS CLEAR PATIENT LIKES TO WALK THE HALLS AND SOMETIMES HAS TO BE REDIRECTED ABOUT GOING INTO THE WRONG ROOM. PATIENT HAS NOT DISPLAYED AND BEHAVIORS WILL CONTINUE TO MONITOR PATIENT FOR SAFETY AND BEHAVIORS.
--- NOTE | 2019-11-15 15:43 | NUR ---
OLIVIA spoke with Ann at and confirmed this d/c for 11/15 at 11 am. will provide the transporation. They request that this pt be toileted prior to d/c. OLIVIA faxed the neg COVID 19 test .
[2019-11-15 20:12] VITALS: BP 109/66
--- NOTE | 2019-11-16 04:40 | NUR ---
Assumed care on 11/15/19 @ 19:15. Ambulating up ad jose throughout the halls and mileu. Also sits in emily chair with legs proped up. Cooperated with assessment, HRRR, ABD sounds noted, Lungs CTA bilat. Incontinent of Bladder. Takes meds crushed in yogart. Spoke with Dr. Weir, 0900 dose of Thorazine 87.5 given @ 04:15. x1 assist to ambulate throughout the hallways.
--- NOTE | 2019-11-16 06:32 | NUR ---
SLEPT 8.4 HOURS
[2019-11-16 09:28] VITALS: BP 121/93
[2019-11-16 09:29] VITALS: BP 121/93
--- NOTE | 2019-11-16 09:47 | NUR ---
PATIENT CARE ASSUMED AT 0700 - PATIENT FOUND TO BE WANDERING AROUND UNIT - AMBULATES WITH LIMP - BENT OVER TO THE LEFT. PATIENT COMPLIANT WITH MEDICATIONS GIVEN WITH APPLESAUCE. PATIENT CALM AND REDIRECTABLE. ATE WELL FOR BREAKFAST - SLEPT FOR SHORT TIME IN DINING ROSS AFTERWARDS. AWOKE AND STARTED AMBUALTING AROUND ONCE AGAIN AND THEN SAT AGAIN AND ATE SHERBET. PATIENT TRIES TO UNDERSTAND BUT DIFFICULT TO COMMUNICATE AT TIMES WITH LANGUAGE BARRIER. DUE TO DISCHARGE BACK TO [facility] TODAY AT 11am
[2019-11-16] MEDS ORDERED: CHLORPROMAZINE25 M3 PO (10:24)
[2019-11-16] MEDS ORDERED: CHLORPROMA25 MG/1 ML IM (10:24)
[2019-11-16] MEDS ORDERED: MIRALAX17 GM PO (10:26)
--- NOTE | 2019-11-16 11:17 | NUR ---
PATIENT DISCHARGED AT 11:10 TO [facility] IN [place]. PATIENT WAS CALM AND DIRECTABLE. ALL POSSESSIONS HE ARRIVED WITH TRANSPORTED WITH HIM . PRESCRIPTIONS AND ALL DOCUMENTATION WAS GIVEN TO STAFF TAKING PATIENT TO GA. PATIENT HAS MORNING MEDICATIONS. CHOROPROMAZINE MORNING DOSE ADMINISTERED AT 0400 INSTEAD OF 0900 PER SKEIN BANDER. PATIENT ALERT WHEN LEAVING. FACILITY CALLED AND REPORT GIVEN AT 2230 - VITALS STABLE AT DISCHARGE.
--- NOTE | 2019-11-16 11:20 | NUR ---
OLIVIA D/C NOTE OLIVIA faxed to Ann at [facility] of the [facility] patients discharge documents. OLIVIA also gave Ann a verbal update. No other needs for SW team to address at this time.
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
--- NOTE | 2019-11-18 11:31 | D ---
[facility] [place] [address] DISCHARGE SUMMARY Name: SCOT FLOREZ Room #: 518A-A [facility] IN M.R.#: [id number] Admission: 10/21/19 Attend Phys: Bashir Weir DO Discharge: 11/16/19 Date of : 36 Report #: [id number] THIS REPORT FOR: cc: Doug Barton,Doug Bolanos,Bashir Taveras DO ~ THIS REPORT FOR: //name// CC: Bashir Barton DATE OF SERVICE: 11/16/2019 INPATIENT PSYCHIATRIC DISCHARGE SUMMARY ATTENDING PHYSICIAN: Bashir Weir DO. ASBESTOS COVERER AT THE TIME OF DISCHARGE: Gaurav Chowdhury MD DISCHARGE DIAGNOSES: Major neurocognitive disorder, likely due to Alzheimer's disease with behavioral disturbance advanced. 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 The patient's general medical problems are actually few and include hypertension at times, moderate protein-calorie malnutrition, B12 and vitamin D deficiency, history of COPD, and osteoarthritis. DISCHARGE PLAN: The patient is discharging to [place] at the [facility]. DIET: Regular, but finger foods. DISCHARGE MEDICATIONS: Chlorpromazine 87.5 mg oral daily at 0900, 1500, 2100; chlorpromazine 50 mg IM q. 6 hours p.r.n. for agitation, medication refusal; MiraLax 17 g p.o. daily; lidocaine transdermal daily I believe is for back pain; tamsulosin 0.4 mg p.o. daily for BPH; vitamin D 1000 mcg oral daily; cimetidine 400 mg p.o. at bedtime for GERD; Eucerin cream topically applied to xerosis twice a day; acetaminophen 650 mg p.o. q. 4 hours p.r.n. The patient requires 24/7 care and supervision. LABORATORY DATA: The patient's laboratories this admission, hematology on 11/02/2019, H and H 12.2 and 36.1, white count 6.8, platelet count 367. Chemistries: Sodium 141, potassium 3.9, chloride 106, bicarbonate 30, anion gap 5, BUN 33, creatinine 1.0, estimated GFR 72, glucose 104, calcium 9.0, magnesium 2.2, vitamin B12 level 321 done on 10/21/2019. TSH normal at 2.637. Hemoglobin A1c is 6.1 done on 10/21/2019. COVID-19 PCR serology done on 11/14/[address] [address] DISCHARGE SUMMARY Name: SCOT FLOREZ Room #: 518A-A [facility] IN [facility]#: [id number] Admission: 10/21/19 Attend Phys: Bashir Weir, Discharge: 11/16/19 Date of : 36 Report #: [id number] REASON FOR ADMISSION: Back on 10/21/2019 is as follows: An 79-year-old male known from previous admission approximately a year ago. The patient was apparently resistive, restless, had an increased inappropriate rumination, urinating in other peoples' rooms and combative with redirection. HOSPITAL COURSE: The patient was admitted to Geriatric Psychiatry Unit. We initially tried to get the patient's behaviors under control with olanzapine. This was found to be ineffective after a couple of weeks, so we switched gears to chlorpromazine regimen slowly titrating that to the dose we left off at 87.5 mg 3 times a day, had been on as high as 100 mg 3 times a day, but the patient had a pronounced lean and appearing off balance and I did not feel that it was worth encouraging a fall. We had him on lorazepam 10 mg 3 times a day for akathisia and we got that down to basically nothing when it was discontinued yesterday on 11/15/2019 to just 0.25 mg daily at 1300 hours. The patient gave largely non-intelligible responses in Malawian and similarly in Estonian. I usually spoke to him in Malawian. We did have a Malawian speaking nurse on our treatment team and I normally did not use hang gliding instructor because he is demented that it was clearly not understanding even when communicating in jordanian by a new [place] speakers. At the time of discharge, the patient was in stable condition, redirecting, non-assaultive and nonself-injurious. PHYSICAL EXAMINATION: VITAL SIGNS: On the day of discharge, temperature 37.1, pulse 87, respirations 20, BP 121/93, O2 sat 98%. MUSCULOSKELETAL: Still slight lean to his right. Normal station. He does have some bowleggedness. MENTAL STATUS EXAMINATION: This is a well-developed, unkempt male, appearing his stated age. Attention fair. Concentration impaired. Speech nonfluent at times. No psychomotor agitation. No psychomotor retardation. Denied SI or HI. Did not appear helpless, hopeless. Memory grossly impaired. Insight impaired, judgment impaired. Fund of knowledge way below average. PROGNOSIS: For this patient is guarded to poor given advanced dementia. His daughter is living in [place], poor support. Certainly if he stops eating, hospice should be considered. <ELECTRONICALLY SIGNED> By: Bashir Weir, 11/18/19 1131 [id number] Bashir Weir DO /nt
== END 2019-11-16 11:22 | DRG 57 ==
LOC: ER 20:11 → EROBS 22:32 → SBH 22:32
PROVIDERS: Internal Medicine; Nurse Practitioner; Student in an Organized Health Care Education/Training Program; ADMIT Psychiatry & Neurology Psychiatry; ATTEND Psychiatry & Neurology Psychiatry
DX: G30.9 Alzheimer's disease, unspecified (principal); F01.51 Vascular dementia, unspecified severity, with behavioral disturbance; F02.81 Dementia in other diseases classified elsewhere, unspecified severity, with behavioral disturbance; E44.0 Moderate protein-calorie malnutrition; I10 Essential (primary) hypertension; E53.8 Deficiency of other specified B group vitamins; E55.9 Vitamin D deficiency, unspecified; J44.9 Chronic obstructive pulmonary disease, unspecified; M19.90 Unspecified osteoarthritis, unspecified site; G47.00 Insomnia, unspecified; I95.9 Hypotension, unspecified; F32.9 Major depressive disorder, single episode, unspecified; K21.9 Gastro-esophageal reflux disease without esophagitis; Z79.899 Other long term (current) drug therapy; Z88.8 Allergy status to other drugs, medicaments and biological substances; Z68.21 Body mass index [BMI] 21.0-21.9, adult; Z03.818 Encounter for observation for suspected exposure to other biological agents ruled out
CPT/HCPCS: 10880